=== PATIENT | female | born 1950 | race Caucasian/White ===

== ENCOUNTER 2023-07-19 22:54 | Inpatient (IN) | payer OTHER, SELFPAY ==
[2023-07-19 17:03] VITALS: BP 155/126
[2023-07-19 17:31] LABS: % Basophils 0.5 % (0-2); % Immature Granulocytes 0.4 % (0-0.5); % Monocytes 6.9 % (1.7-9.3); % Neutrophils 79.2 % (42.2-75.2); Absolute Basophils 0.1 10^3/uL (0-0.2); Absolute Eosinophils 0.1 10^3/uL (0-0.7); Absolute Lymphocytes 1.3 10^3/uL (1.2-3.4); Absolute Monocytes 0.8 10^3/uL (0.1-0.6); Absolute Neutrophils 8.8 10^3/uL (1.4-6.5); Hemoglobin 12.8 g/dL (12.0-16.0); Mean Corp Hgb Conc. 33.7 g/dL (33.0-37.0); Mean Corpuscular Hgb 30.7 pg (27.0-31.0); Mean Corpuscular Volume 91.1 fL (81.0-99.0); Mean Platelet Volume 9.9 fL (7.4-10.4); Nucleated Red Blood Cells % 0 %; Platelet Count 252 10^3/uL (130-400); Red Blood Cell Count 4.17 10^6/uL (4.20-5.40); Red Cell Dist. Width 13.2 % (11.5-14.5); White Blood Cell Count 11.1 10^3/uL (4.8-10.8)
[2023-07-19 17:40] LABS: INR 1.19; PT 14.9 Sec (11.4-14.6)
[2023-07-19 17:41] LABS: APTT 36.5 Sec (23.4-35.0)
[2023-07-19 17:46] LABS: ALT (SGPT) 25 U/L (0-35); AST (SGOT) 26 U/L (14-36); Albumin 4.6 g/dl (3.5-5.0); Alkaline Phosphatase 72 U/L (38-126); Blood Urea Nitrogen 20 mg/dl (7-17); Calcium 10.1 mg/dl (8.4-10.2); Carbon Dioxide 29 mmol/L (22-30); Chloride 97 mmol/L (98-107); Glucose 106 mg/dl (70-99); Potassium 3.9 mmol/L (3.5-5.1); Sodium 135 mmol/L (135-145); Total Bilirubin 0.6 mg/dl (0.2-1.3); Total Protein 7.3 g/dl (6.3-8.2); eGFR > 60.00
--- NOTE | 2023-07-19 20:09 | ED.GENMED ---
History of Present Illness
General
Chief Complaint: Skin Problem
Source: patient and ambulance crew
Exam Limitations: none
Time Seen by Provider: 07/19/23 19:56
Nursing documentation reviewed up to this point in time: agreed with
Travel History
Have you had any contact with someone who has COVID-19?: No
Do you have any symptoms of coronavirus? Fever > 100 degrees, chills, cough, shortness of breath, sore throat, loss of taste or smell, muscle aches, or headache?: No
History of Present Illness
History of Present Illness:
72-year-old female presents the emergency department via EMS from [facility] rehab due to a right foot wound and pain. She has had the wound since January. On 04/30/2023 Dr. Tello performed a detailed bypass to restore circulation to her
right leg. She has a history of a left AKA.
Past History
Past History
ED Past Medical History: COPD and Other (Peripheral vascular disease, ICU delirium)
ED Past Surgical History: Other (Femoropopliteal bypass with subsequent ligation and reversal)
Social History
Tobacco: Former smoker
Alcohol: None
Drug: None
Living: group home
Review of Systems
Review of Systems
Allergies reviewed?: Yes
All Other Systems: Not applicable
Constitutional: Reports no symptoms
EENT: Reports no symptoms
Respiratory: Reports no symptoms
Cardiac: Reports no symptoms
ABD/GI: Reports no symptoms
: Reports no symptoms
Musculoskeletal: Reports no symptoms
Skin: Reports other (Open wound right foot, erythema and pain to right foot)
Neurological: Reports no symptoms
Endocrine: Reports no symptoms
Hematologic/Lymphatic: Reports no symptoms
Psychiatric: Reports no symptoms
Phy Exam
Physical Exam
Physical Exam:
Physical Exam
General: no apparent distress, not acutely ill
Neck: supple. no meningeal signs. normal posterior pharynx
Heart: s1/s2 regular rate and rhythm, no murmur. equal radial
pulses.
HEENT: Pupils equal round reactive to light, EOMI
Lungs: no acute respiratory distress. clear bilaterally
Abdomen: normal bowel sounds. not tender. no CVAT
Neuro: alert and oriented. no focal neurological deficits cranial nerves II through XII intact
Skin: no rash
Psychiatric: well kept. interactive and cooperative
Extremities: Left AKA, scar right medial leg, palpable dorsalis pedis pulse, as well has dopplerable pulse
Course
Orders/Labs/Results
Orders:
Orders
07/19/23 17:17
CMP [Comprehensive Metabolic Panel] Urgent
Complete Blood Count/With Diff Urgent
PT/INR [Prothrombin Time] Urgent
PTT Urgent
07/19/23 20:18
Piperacillin/Tazo 3.375 Gram [Zosyn] 3.375 gram in 50 ml IV NOW
Vancomycin 1 Gram/200 ml [Vancocin] 1 gram in 200 ml IV NOW
US Periph Venous LOWER Ext RT Urgent
Comment:
Reason For Exam: right foot pain, swelling
07/19/23 20:41
Lactic Acid Q4H
Comment: CANCEL 2nd LACTIC ACID IF 1st LACTIC ACID IS LESS THAN 2
Blood Culture Q30M
SHIRA Source: Blood/Venous
Specimen Description:
07/19/23 20:44
Blood Culture Q30M
SHIAR Source: Blood/Venous
Specimen Description:
07/19/23 22:36
Admit/Transfer Patient As Directed
Co-Sign Provider:
Level of Care: Inpatient admission
Assign to:: Medical/Surgical
Physician / Group: gisela
Diagnosis: infected plantar wound
Reason for Hospitalization: infected plantar wound
Expected length of stay greater than two midnights?: Yes
ELOS- Estimated Length of Stay in days: 2
I certify the patient meets the requirements for IP care: Yes
07/19/23 22:37
Code Status As Directed
Resuscitation Status: Do not resuscitate
Reached after discussion with pt or family/Healthcare POA: Yes
DNR Bracelet Application ONCE
07/19/23 22:38
Foot, Right 2 View [CR Foot - Right 2 Views] Urgent
Comment:
Reason For Exam: plantar wound, osteo
07/19/23 22:39
Wound Culture [Wound/Abscess/Other Culture] Urgent
SHIRA Source: Foot
Specimen Description: Right
07/20/23 00:30
Lactic Acid Q4H
Comment: CANCEL 2nd LACTIC ACID IF 1st LACTIC ACID IS LESS THAN 2
Abnormal Lab Results
07/19/23
17:17
WBC 11.1 H 10^3/uL
(4.8-10.8)
RBC 4.17 L 10^6/uL
(4.20-5.40)
Absolute Neuts (auto) 8.8 H 10^3/uL
(1.4-6.5)
Absolute Monos (auto) 0.8 H 10^3/uL
(0.1-0.6)
Neutrophils % 79.2 H %
(42.2-75.2)
Lymphocytes % 12.0 L %
(20.5-51.1)
PT 14.9 H Sec
(11.4-14.6)
APTT 36.5 H Sec
(23.4-35.0)
Chloride 97 L mmol/L
(98-107)
BUN 20 H mg/dl
(7-17)
Glucose 106 H mg/dl
(70-99)
07/19/23 17:17
07/19/23 17:17
Vital Signs
Initial and Last Documented VS:
Initial Vital Signs
Temp Pulse Resp BP Pulse Ox
98.4 F 72 90 155/126 94
07/19/23 17:03 07/19/23 17:03 07/19/23 17:03 07/19/23 17:03 07/19/23 17:03
Last Documented Vital Signs
Temp Pulse Resp BP Pulse Ox
98.4 F 72 90 155/126 94
07/19/23 17:03 07/19/23 17:03 07/19/23 17:03 07/19/23 17:03 07/19/23 17:03
MDM/Problems Addressed
Differential Diagnosis Includes:
DVT, abscess, cellulitis
MDM/Problems Addressed:
72-year-old female with right foot wound infection, cellulitis and right popliteal synovial cyst. No signs of DVT. Good pulses in right foot. Admit to hospitalist.
Chronic conditions affecting care: HTN, COPD and PVD
Acute Exacerbation and/or Progression of Chronic Illness: HTN, COPD and PVD
*Radiology
Radiology exam reviewed: radiology read reviewed (Ultrasound right lower extremity no DVT, small popliteal cyst)
*Pulse Oximetry
Patient hypoxic: no
*EKG
Interpreted by ED Provider?: NA
*Commercial Front Load Driver Interpretation
Rate: Commercial Front Load Driver- N/A
*Critical Care Note
Total Time (30-74mins, 75-104mins- exclusive of procedures): Not Applicable
Data Reviewed
Review of Other/Old Records Reveals: Labs
Source: records (Prior creatinine from 05/03/2023 0.5)
Patient Management
Social determinants of health affecting care: Living situation
Discussion with other providers: Hospitalist
Escalation/DeEscalation of care consider admission/obs:
Admit indicated
ED Attending Note
-
Portions of this chart may have been created with voice recognition software.� Occasional wrong word or��sound alike� substitutions may have occurred due to the inherent limitations of voice recognition software.
Discharge Plan
Departure
Patient Disposition: Admit
Date of Disposition: 07/19/23
Time of Disposition: 22:42
Admit to: Med/Surg
Presentation/result/management discussed w/ accepting MD/DO: Hospitalist
Patient with high blood pressure during this ER visit?: Yes
Condition: Fair
Discharge Problem:
Cellulitis of foot, right, Synovial cyst of popliteal space [Aparicio], right knee
Prescriptions:
No Action
amlodipine 5 mg Tablet
5 mg PO DAILY
aspirin 81 mg Tablet,Delayed Release (Dr/Ec)
81 mg PO DAILY
prednisone 2.5 mg Tablet
2.5 mg PO DAILY
duloxetine 30 mg Capsule, Delayed Rel Sprinkle
30 mg PO BID
pantoprazole 40 mg Tablet,Delayed Release (Dr/Ec)
40 mg PO DAILY Qty: 0 0RF
thiamine HCl (vitamin B1) 100 mg Tablet
100 mg PO DAILY Qty: 0 0RF
acetaminophen 325 mg Tablet
650 mg PO Q4HPRN PRN (Reason: mild pain,temp>100.4 F)
magnesium hydroxide [Milk of Magnesia] 400 mg/5 mL Suspension
30 ml PO HSPRN PRN (Reason: if no bm x 3 days)
bisacodyl [Dulcolax (bisacodyl)] 10 mg Suppository
10 mg MA DAILY PRN (Reason: if mom ineffective)
Fleet Enema 19-7 gram/118 mL Enema
118 ml MA DAILY PRN (Reason: if bisacodyl suppository ineffective)
gabapentin 300 mg Capsule
300 mg PO TID
cfhfumsfksj-egbkygsqf-jkwhlbjy 100-62.5-25 mcg Blister With Device
1 inh INHALATION R DAILY
albuterol sulfate [Proventil HFA] 90 mcg/actuation Hfa Aerosol Inhaler
2 puff INHALATION R Q4HPRN PRN (Reason: SOB)
Calazime Skin Protectant Exter
1 applic topical TID
Rx Instructions:
Every Shift
Xarelto 2.5 mg Tablet
2.5 mg PO BID Qty: 90 0RF
tramadol 50 mg tablet
50 mg PO Q8HPRN PRN (Reason: moderate to severe pain)
cephalexin 500 mg capsule
500 mg PO Q12H
metaxalone 800 mg Tablet
800 mg PO Q8HPRN PRN (Reason: muscle spasm/neck pain)
Cough Drops 5 mg Lozenge
5 mg PO Q4HPRN PRN (Reason: cough/sore throat)
metoprolol tartrate 25 mg Tablet
25 mg PO DAILY
solifenacin 10 mg Tablet
10 mg PO DAILY
Referrals:
Carmen Fish MD [Family Provider] -
Interventions
Interventions:
*Risk Screen - Suicide Last Done: 07/19/23 20:14
*General Assessment Last Done: 07/19/23 20:14
*Neglect/Abuse Screening Last Done: 07/19/23 20:14
ED- Fall Risk Assessment Last Done: 07/19/23 20:14
*ED COVID-19 Vaccine History Last Done: 07/19/23 20:14
ED-Skin Assessment Last Done: 07/19/23 20:14
[2023-07-19] MEDS: ZOSYN 50 IV (20:56)
[2023-07-19 21:07] LABS: Lactic Acid 1.5 mmol/L (0.7-2.0)
[2023-07-19 21:26] VITALS: BP 107/64
[2023-07-19] MEDS: VANCOCIN 200 IV (21:26)
[2023-07-19 22:36] VITALS: BMI 20.9
--- NOTE | 2023-07-19 22:44 | HPS.HSE ---
Family Physician
-
Family Physician: Carmen Fish
Chief Complaint
-
wound
History of Present Illness
72-year-old female past medical history of chronic hypoxemic respiratory failure secondary to COPD on 3 L at night at baseline, choledocholithiasis, left AKA and chronic right foot plantar wound, prior DVT of right lower extremity in January 2023
treated with Eliquis, peripheral arterial disease status post femorofemoral bypass in January 2023, depression, TIA, hyperlipidemia, hypertension, GERD, adrenal adenoma, insomnia, presenting with right foot wound and pain.
Patient has had this wound since January but over the past few days she has developed redness on the side of the foot progressing up the right lower extremity associated with pain. The wound itself has been healing but there has been purulent
discharge as well over this time. She denies any fevers or chills.
In April Dr. Tello performed right femorofemoral bypass. She is scheduled to follow-up with them next month.
She drinks 1 glass of wine every night. Denies smoking.
Medical History
Past Medical History
Past Medical History: Reports Other (chronic hypoxemic respiratory failure secondary to COPD on 3 L at night at baseline, choledocholithiasis, left AKA and chronic right foot plantar wound, prior DVT of right lower extremity in January 2023
treated with Eliquis, peripheral arterial disease status post femorofemoral bypass in )
Past Surgical History: Reports None
Social History
Tobacco: Non-smoker
Alcohol: Daily
Drug: None
Family History
Family History: Not pertinent
Allergies / Home Medications
Allergies reflects when Allergies were last updated in [employer].
Home Medications with original date entered in [employer]
Allergy/Medication List:
Allergies
Allergy/AdvReac Type Severity Reaction Status Date / Time
cyclobenzaprine Allergy Unknown Verified 04/29/23 06:52
doxycycline Allergy Anaphylaxis Verified 04/29/23 06:52
hydromorphone [From Dilaudid] AdvReac Confusion Verified 04/29/23 06:52
lisinopril AdvReac Nausea Verified 04/29/23 06:52
rosuvastatin [From Crestor] AdvReac MUSCLE Verified 04/29/23 06:52
CRAMPS
Home Medications
amlodipine 5 mg tablet 5 mg PO DAILY Blood Pressure 01/08/23
aspirin 81 mg tablet,delayed release 81 mg PO DAILY Blood Clot Prevention/Tx 01/08/23
duloxetine 30 mg capsule,delayed release sprinkle 30 mg PO BID Depression 01/08/23
prednisone 2.5 mg tablet 2.5 mg PO DAILY Anti-Inflammatory 01/08/23
pantoprazole 40 mg tablet,delayed release 40 mg PO DAILY #0 tabs 01/22/23
thiamine HCl (vitamin B1) 100 mg tablet 100 mg PO DAILY #0 tabs 01/22/23
acetaminophen 325 mg tablet 650 mg PO Q4HPRN PRN mild pain,temp>100.4 F 01/29/23
bisacodyl 10 mg rectal suppository (Dulcolax (bisacodyl)) 10 mg SD DAILY PRN if mom ineffective 01/29/23
magnesium hydroxide 400 mg/5 mL oral suspension (Milk of Magnesia) 30 ml PO HSPRN PRN if no bm x 3 days 01/29/23
sodium phosphates 19 gram-7 gram/118 mL enema (Fleet Enema) 118 ml SD DAILY PRN if bisacodyl suppository ineffective 01/29/23
gabapentin 300 mg capsule 300 mg PO TID Neurological Condition 03/10/23
fluticasone fur. 100 mcg-umeclid 62.5 mcg-vilant 25 mcg inhalat.powder 1 inh inhalation R DAILY Lung/Breathing Issues 04/01/23
albuterol sulfate 90 mcg/actuation aerosol inhaler (Proventil HFA) 2 puff inhalation R Q4HPRN PRN SOB 04/07/23
Calazime Skin Protectant Exter 1 applic topical TID Skin Issues 04/22/23
rivaroxaban 2.5 mg tablet (Xarelto) 2.5 mg PO BID #90 tabs 05/03/23
cephalexin 500 mg capsule 500 mg PO Q12H 07/19/23
menthol 5 mg lozenges (Cough Drops) 5 mg PO Q4HPRN PRN cough/sore throat 07/19/23
metaxalone 800 mg tablet 800 mg PO Q8HPRN PRN muscle spasm/neck pain 07/19/23
metoprolol tartrate 25 mg tablet 25 mg PO DAILY 07/19/23
solifenacin 10 mg tablet 10 mg PO DAILY 07/19/23
tramadol 50 mg tablet 50 mg PO Q8HPRN PRN moderate to severe pain 07/19/23
Review of Systems
-
History Source: Patient
A 12 point ROS was completed and negative except as noted: Yes
Constitutional: Reports No Symptoms
EENT: Reports No Symptoms
Respiratory: Reports No Symptoms
Cardiac: Reports No Symptoms
Abdomen/GI: Reports No Symptoms
: Reports No Symptoms
Musculoskeletal: Reports No Symptoms
Skin: Reports No Symptoms
Neurological: Reports No Symptoms
Endocrine: Reports No Symptoms
Hematologic/Lymphatic: Reports No Symptoms
Psych: Reports No Symptoms
Physical Exam
Vital Signs
Vital Signs
Temp Pulse Resp BP Pulse Ox
98.4 F 72 90 155/126 94
07/19/23 17:03 07/19/23 17:03 07/19/23 17:03 07/19/23 17:03 07/19/23 17:03
Physical Exam
General: Well Developed, Well Nourished and No Apparent Distress
HEENT: NormoCephalic, Moist mucous membranes and Atraumatic
Respiratory: Clear
Cardiac: S1/S2 and Regular Rhythm; No Murmur or Rub
GI: Soft, Non Tender, Non Distended and Normal Bowel Sounds; No Organomegaly
Rectal: Deferred by Provider
Musculoskeletal: No Clubbing, No Cyanosis and No Edema
Skin: Other (plantar wound, purulent drainage, erythema of lateral/ dorsal foot extending up calf ); No Rash
Neuro: Nonfocal/grossly intact
Laboratory Results
-
07/19/23 17:17
07/19/23 17:17
Laboratory Results
PT 14.9 Sec (11.4-14.6) H 07/19/23 17:17
INR 1.19 07/19/23 17:17
APTT 36.5 Sec (23.4-35.0) H 07/19/23 17:17
Lactic Acid 1.5 mmol/L (0.7-2.0) 07/19/23 20:41
Total Bilirubin 0.6 mg/dl (0.2-1.3) 07/19/23 17:17
AST 26 U/L (14-36) 07/19/23 17:17
ALT 25 U/L (0-35) 07/19/23 17:17
Alkaline Phosphatase 72 U/L (38-126) 07/19/23 17:17
Data Reviewed
-
Lab Data: Labs Reviewed by me
Old Records: Reviewed
Impression/Plan
-
IMPRESSION:
PLAN:
# Infected right plantar wound
# Recent right femorofemoral bypass
-Vancomycin/Zosyn
-Venous ultrasound pending
-Check x-ray to evaluate for osteomyelitis, may require MRI
-Check wound culture
-Podiatry consulted
-Vascular surgery consulted
-Hold Xarelto for potential debridement
History of peripheral arterial disease status post femorofemoral bypass in January 2023
Left AKA
-Continue aspirin
Chronic hypoxemic respiratory failure secondary to COPD on 3 L at night at baseline
-Continue inhalers
History of choledocholithiasis/ascending cholangitis
Prior DVT of right lower extremity in January 2023
-Hold Xarelto for now
Depression
-Continue duloxetine
TIA
Hyperlipidemia
Essential hypertension
-Continue amlodipine
GERD
Adrenal adenoma
Insomnia
Chronic anemia
Chronic pain
-Continue tramadol, gabapentin
Prednisone
-Only takes as needed for sore throat or cold
DNR/DNI
DVT prophylaxis�heparin
Regular diet
[2023-07-20 00:27] VITALS: BP 153/73
[2023-07-20] MEDS: ZOSYN 50 IV ×4 (02:27→20:56)
[2023-07-20 06:32] LABS: % Basophils 0.7 % (0-2); % Immature Granulocytes 0.2 % (0-0.5); % Lymphocytes 14.9 % (20.5-51.1); % Monocytes 8.2 % (1.7-9.3); Absolute Basophils 0.1 10^3/uL (0-0.2); Absolute Eosinophils 0.2 10^3/uL (0-0.7); Absolute Lymphocytes 1.4 10^3/uL (1.2-3.4); Absolute Monocytes 0.8 10^3/uL (0.1-0.6); Absolute Neutrophils 6.7 10^3/uL (1.4-6.5); Hematocrit 36.8 % (37.0-47.0); Hemoglobin 12.2 g/dL (12.0-16.0); Mean Corp Hgb Conc. 33.2 g/dL (33.0-37.0); Mean Corpuscular Hgb 30.6 pg (27.0-31.0); Mean Corpuscular Volume 92.2 fL (81.0-99.0); Mean Platelet Volume 10.6 fL (7.4-10.4); Nucleated Red Blood Cells % 0 %; Platelet Count 243 10^3/uL (130-400); Red Blood Cell Count 3.99 10^6/uL (4.20-5.40); Red Cell Dist. Width 13.2 % (11.5-14.5); White Blood Cell Count 9.1 10^3/uL (4.8-10.8)
[2023-07-20 06:52] LABS: ALT (SGPT) 27 U/L (0-35); AST (SGOT) 35 U/L (14-36); Albumin 4.2 g/dl (3.5-5.0); Alkaline Phosphatase 75 U/L (38-126); Blood Urea Nitrogen 15 mg/dl (7-17); Calcium 9.8 mg/dl (8.4-10.2); Carbon Dioxide 25 mmol/L (22-30); Chloride 103 mmol/L (98-107); Estimated Creatinine Clearance 71 ml/min; Glucose 76 mg/dl (70-99); Potassium 3.5 mmol/L (3.5-5.1); Sodium 135 mmol/L (135-145); Total Bilirubin 0.9 mg/dl (0.2-1.3); Total Protein 6.7 g/dl (6.3-8.2); eGFR > 60.00
[2023-07-20 09:00] VITALS: BP 131/70
[2023-07-20] MEDS: VITAMIN B1 100 MG PO (09:04)
[2023-07-20] MEDS: ASPIR LOW (ENTERIC COATED) 81 MG PO (09:04)
[2023-07-20] MEDS: NEURONTIN 300 MG PO ×3 (09:04→22:06)
[2023-07-20] MEDS: PROTONIX 40 MG PO (09:05)
[2023-07-20] MEDS: HEPARIN 5000 UNITS SC ×2 (09:05→20:56)
[2023-07-20] MEDS: LOPRESSOR 25 MG PO (09:05)
[2023-07-20] MEDS: CYMBALTA DELAYED RELEASE 30 MG PO ×2 (09:05→20:57)
[2023-07-20] MEDS: VESICARE 10 MG PO (09:05)
[2023-07-20] MEDS: NORVASC 5 MG PO (09:05)
--- NOTE | 2023-07-20 09:23 | PHA.VAN.IN ---
Assessment
- Assessment
Renal Function: Appears similar to baseline
Concomitant Antimicrobials: piperacillin/tazobactam
AUC Dosing Plan
- Dosing Variables
Dosing Weight (kg): 55
Dosing CrCl (ml/min): 71
Vd coefficient (L/kg): 0.7
- Empiric Dosing
Initial / Loading Dose: 1000mg - 3/4 21:26
Maintenance Regimen: Vanc 500mg Q12H - first dose now then 1800
Estimated AUC (mcg*h/mL): 423
Estimated Peak (mcg*h/mL): 24.4
Estimated Trough (mcg/ml): 12.2
Estimated Half Life (H): 10.9
- Monitoring
No levels ordered at this time: consider levels in next few days
Pharmacokinetics Vancomycin I
- -
Patient Age: 72
Patient Sex: Female
Vancomycin Day #: 1
Indication: Skin And Soft Tissue
Requesting Provider: Dr. Quiroz
Pertinent Antimicrobial Allergies:
doxycycline - anaphylaxis
Height / Weight:
Height 5 ft 4 in
Actual Weight 55.229 kg
Pertinent Past Medical History: COPD (O2), L. AKA, PAD
- Vital Signs / Lab Results
Temp Pulse Resp BP Pulse Ox
98.1 F 64 17 131/70 96
07/20/23 09:00 07/20/23 09:05 07/20/23 09:00 07/20/23 09:05 07/20/23 09:00
Lab Results - Hematology
07/19/23 07/20/23
17:17 05:35
WBC 11.1 H 9.1
Lab Results - Chemistry
07/19/23 07/20/23
17:17 05:35
BUN 20 H 15
Creatinine 0.7 0.6
Estimated Creat Clear 71
Albumin 4.6 4.2
07/19/23 07/20/23
20:41 00:30
Lactic Acid 1.5 Cancelled
[2023-07-20] MEDS: SYMBICORT 80/4.5 MCG INHALER 2 PUFF INH ×2 (10:05→20:24)
--- NOTE | 2023-07-20 11:22 | CON.MD ---
Consultation - Medical
-
Consult requested by Dr on 07/20/2023 @
Consult performed by Dr Yvonne Wei 07/20/2023 @1025
Medical History
Chief Complaint
Wound right foot
History of Present Illness
This is a 72-year-old female with past medical history of left AKA and chronic right foot plantar wound, prior DVT of right lower extremity in January 2023 treated with Eliquis, peripheral arterial disease status post femorofemoral bypass in
01/2023.Patient has had this right foot wound since bypass/AKA but over the past few days she noticed increased redness and pain to the foot progressing up the right lower extremity with associated with pain. She denies any fevers or chills.
Dr. Tello performed right femorofemoral bypass 05/08.� I was consulted to evaluate wound for possible debridement.
Past Medical / Surgical History
PMH/PSH +chronic hypoxemic respiratory failure secondary to COPD, choledocholithiasis, left AKA and chronic right foot plantar wound, prior DVT of right lower extremity in January 2023 treated with Eliquis, peripheral arterial disease status post
femorofemoral bypass in January 2023
Medications
Cyclobenzaprine, Doxycycline, Dilaudid, crestor, Amlodipine, asa, albuterol inhaler, gabapentin, metaxalone, metoprolol, pantoprazole, prednisone, xarelto, solifenacin, tramadol,
Social / Family History
She drinks 1 glass of wine every night.� Denies smoking.
Vital Signs / Labs
-
Vital Signs and Labs:
Temp Pulse Resp BP Pulse Ox
98.1 F 64 17 131/70 96
07/20/23 09:00 07/20/23 09:05 07/20/23 09:00 07/20/23 09:05 07/20/23 09:00
07/20/23 05:35
07/20/23 05:35
07/19/23 07/20/23
17:17 05:35
WBC 11.1 H
RBC 4.17 L 3.99 L
Hct 36.8 L
MPV 10.6 H
Absolute Neuts (auto) 8.8 H 6.7 H
Absolute Monos (auto) 0.8 H 0.8 H
Neutrophils % 79.2 H
Lymphocytes % 12.0 L 14.9 L
PT 14.9 H
APTT 36.5 H
Chloride 97 L
BUN 20 H
Glucose 106 H
Physical Exam
Vital Signs
Vital Signs
Temp Pulse Resp BP Pulse Ox
98.1 F 64 17 131/70 96
07/20/23 09:00 07/20/23 09:05 07/20/23 09:00 07/20/23 09:05 07/20/23 09:00
Physical Exam
General: NAD, pleasant
Lower Extremities:
AKA LLE, right foot with palpable 1/4 DP, non palp FREIGHT SOLICITOR . Foot warm to touch, cft <4 secs
Midfoot ulceration to exposed tendon/fascia measures approx 2.7cm long x 1cm wide x 0.5cm deep. + purulence expressed
+ cellulitiis mid arch to rearfoot-boggy and tender to touch
Assessemnt/Plan
-
1-Chronic non healing wound right foot to exposed tendon/fascia
2-Cellulitis/possible abscess left midfoot
3-PAD S/P revasc RLE and AKA LLE
4-Ambulatory dysfunction S/P AKA
---Wound care orders placed on chart, will obtain MRI for possible abscess.
---May require I&D in OR
---Vascular to see and assess
Will follow with you
--- NOTE | 2023-07-20 11:23 | CON.VAS ---
Addendum entered and electronically signed by Srinivasan Pinto III, MD 07/20/23 17:27:
This patient was seen and examined with TOMÁS Galvez. I agree with the history and physical exam as well as the assessment and plan. I have the following additions:
Well-known to the vascular surgery service
Left AKA
Fem-Fem bypass
Right fem-pop bypass
Chronic large plantar surface wound right foot
Active infection
Draining pus
Duplex reviewed. Fem fem patent. RLE bypass patent. Distal PT outflow is occluded.
I suspect she has chronic osteo of her foot based on the appearance of the wound and non healing nature.
Podiatry to see
MRI of the foot
Risk of limb loss is high
Signed:
Srinivasan Pinto III, MD
[facility] Vascular Surgery
[phone] (queo)
Original Note:
Consultation
Consultation Request
Performing Provider: Millie
Reason for Consultation: Nonhealing foot wound
Medical History
-
Chief Complaint: R foot wound
History of Present Illness:
72-year-old female well-known to the vascular service, last seen in our office 06/15/2023. At that time right foot wound was cleaned and noted to be slowly healing. Patient states she has wound care daily and a physician at her facility checks on
the progress of the wound weekly. She notes the wound has never been painful. Yesterday she felt an aching at the site of the wound and some redness at her ankle. For these findings she came to the ER.
Vascular history noted below.
Vascular consult for nonhealing wound. Patient seen at bedside in the ER with Dr. Pinto. Right plantar foot wound image below. Large amount of purulence expressed. Distal pulses nonpalpable. Palpable femoral and popliteal pulse.
12/09/22- L fem-pop bypass and FEA- [facility]�������
01/19/23- LEFT lower extremity amputation, above the knee- CLI/failed bypass from outside hospital- Dr. Pinto�������
01/30/23- Redo left groin dissection; Left to right femoral to femoral artery bypass with 8 mm ringed Propaten graft- RLE ischemic rest pain�������
03/17/23- diagnostic RLE agram�������
04/29/23- Right profunda femoris to below-knee popliteal artery bypass with 6 mm ringed [facility] Propaten graft- [facility]
Past Medical History
Past Medical History: COPD and Other (choledocholithiasis, DVT of right lower extremity in January 2023 treated with Eliquis, PAD )
Past Surgical History: Other (Left AKA, femorofemoral bypass, right profunda to below-knee popliteal bypass)
Social History
Tobacco: Non-Smoker
Alcohol: Daily
Drug: None
Living: Long Term
Family History
Family History: Reviewed & Not Pertinent
Allergies / Home Medications
Allergy/AdvReac Type Severity Reaction Status Date / Time
cyclobenzaprine Allergy Unknown Verified 04/29/23 06:52
doxycycline Allergy Anaphylaxis Verified 04/29/23 06:52
hydromorphone [From Dilaudid] AdvReac Confusion Verified 04/29/23 06:52
lisinopril AdvReac Nausea Verified 04/29/23 06:52
rosuvastatin [From Crestor] AdvReac MUSCLE Verified 04/29/23 06:52
CRAMPS
Medication Instructions Recorded Confirmed Type
amlodipine 5 mg tablet 5 mg PO DAILY Blood Pressure 01/08/23 07/19/23 History
aspirin 81 mg tablet,delayed 81 mg PO DAILY Blood Clot 01/08/23 07/19/23 History
release Prevention/Tx
duloxetine 30 mg capsule,delayed 30 mg PO BID Depression 01/08/23 07/19/23 History
release sprinkle
prednisone 2.5 mg tablet 2.5 mg PO DAILY Anti-Inflammatory 01/08/23 07/19/23 History
pantoprazole 40 mg tablet,delayed 40 mg PO DAILY #0 tabs 01/22/23 07/19/23 Rx
release
thiamine HCl (vitamin B1) 100 mg 100 mg PO DAILY #0 tabs 01/22/23 07/19/23 Rx
tablet
acetaminophen 325 mg tablet 650 mg PO Q4HPRN PRN mild 01/29/23 07/19/23 History
pain,temp>100.4 F
bisacodyl 10 mg rectal suppository 10 mg AZ DAILY PRN if mom 01/29/23 07/19/23 History
(Dulcolax (bisacodyl)) ineffective
magnesium hydroxide 400 mg/5 mL 30 ml PO HSPRN PRN if no bm x 3 01/29/23 07/19/23 History
oral suspension (Milk of Magnesia) days
sodium phosphates 19 gram-7 118 ml AZ DAILY PRN if bisacodyl 01/29/23 07/19/23 History
gram/118 mL enema (Fleet Enema) suppository ineffective
gabapentin 300 mg capsule 300 mg PO TID Neurological 03/10/23 07/19/23 History
Condition
fluticasone fur. 100 mcg-umeclid 1 inh inhalation R DAILY 04/01/23 07/19/23 History
62.5 mcg-vilant 25 mcg Lung/Breathing Issues
inhalat.powder
albuterol sulfate 90 mcg/actuation 2 puff inhalation R Q4HPRN PRN SOB 04/07/23 07/19/23 History
aerosol inhaler (Proventil HFA)
Calazime Skin Protectant Exter 1 applic topical TID Skin Issues 04/22/23 07/19/23 History
cephalexin 500 mg capsule 500 mg PO Q12H Infection 07/19/23 07/19/23 History
menthol 5 mg lozenges (Cough Drops) 5 mg PO Q4HPRN PRN cough/sore 07/19/23 07/19/23 History
throat
metaxalone 800 mg tablet 800 mg PO Q8HPRN PRN muscle 07/19/23 07/19/23 History
spasm/neck pain
metoprolol tartrate 25 mg tablet 25 mg PO DAILY Blood Pressure 07/19/23 07/19/23 History
solifenacin 10 mg tablet 10 mg PO DAILY Urinary Issue 07/19/23 07/19/23 History
tramadol 50 mg tablet 50 mg PO Q8HPRN PRN moderate to 07/19/23 07/19/23 History
severe pain
rivaroxaban 2.5 mg tablet (Xarelto) 2.5 mg PO BID Blood Clot 07/20/23 07/19/23 History
Prevention/Tx
Review of Systems
-
History Source: Patient
All other systems: Negative unless noted
Constitutional: Reports No Symptoms
EENT: Reports No Symptoms
Respiratory: Reports No Symptoms
Cardiac: Reports No Symptoms
Vascular: Denies Leg Pain / Claudication
Abdomen/GI: Reports No Symptoms
: Reports No Symptoms
Musculoskeletal: Reports Edema
Skin: Reports Other (chronic right foot wound)
Neurological: Reports No Symptoms
Endocrine: Reports No Symptoms
Physical Exam
Vital Signs
Temp Pulse Resp BP Pulse Ox
98.1 F 64 17 131/70 96
07/20/23 09:00 07/20/23 09:05 07/20/23 09:00 07/20/23 09:05 07/20/23 09:00
Lab Results
07/20/23 05:35
07/20/23 05:35
Physical Exam
General: No Apparent Distress
HEENT: Normocephalic and Atraumatic
Respiratory: Non Labored Respirations
Cardiac: Negative JVD
Breast: Deferred by me
GI: Soft and Non Tender
Musculoskeletal: No Clubbing, No Cyanosis and Edema (mild, to right foot)
Skin: Warm and Other (see image above)
Neuro: Awake, Alert and Oriented
Psych: Calm
Pulses: Right Femoral: +2, Right Popliteal: +2, Right Dorsalis Pedis: Doppler (nonpalp) and Right Posterior Tibial: Doppler (nonpalp)
Assessment / Plan
-
72-year-old female with chronic right foot wound since January 2023. Patient states it has been slowly healing with the help of wound care but yesterday she noted it was uncomfortable and aching which was new. This led to her ER visit
Plan:
-Arterial ultrasound
-Admit to hospitalist
-Antibiotics
-Podiatry consult
-MRI of the foot
--- NOTE | 2023-07-20 13:54 | CM ---
CM reviewed medical records. REBECCA spoke with Kelly at [facility]. Patient is a LTC resident. Bed hold in place. Plan to return on discharge.
REPORT
[phone] ask for 'A' wing
[2023-07-20] MEDS: DAKIN'S SOLUTION 0.25% 1/2 STRENGTH 473 ML TOPICAL (15:06)
--- NOTE | 2023-07-20 15:35 | W.PN.HOSP.TC ---
Today's Communication/Plan
-
Follow MRI foot
CW abx
Follow surgery recs
Assessment / Plan
Assessment / Plan
# Infected right plantar wound
# Recent right femorofemoral bypass
-cw Vancomycin/Zosyn
-Venous ultrasound pending
-Foot x-ray without evidence of osteomyelitis. MRI foot recommended ;arterial doppler pending
-Follow wound culture
-Podiatry consulted
-Vascular surgery consulted
-Hold Xarelto for potential debridement
History of peripheral arterial disease status post femorofemoral bypass in January 2023
Left AKA
-Continue aspirin
Chronic hypoxemic respiratory failure secondary to COPD on 3 L at night at baseline
-Continue inhalers
History of choledocholithiasis/ascending cholangitis
Prior DVT of right lower extremity in January 2023
-Hold Xarelto for now
Depression
-Continue duloxetine
TIA
Hyperlipidemia
Essential hypertension
-Continue amlodipine
GERD
Adrenal adenoma
Insomnia
Chronic anemia
Chronic pain
-Continue tramadol, gabapentin
Prednisone
-Only takes as needed for sore throat or cold
DNR/DNI
DVT prophylaxis�heparin
Regular diet
Anticipated Discharge: > 48 hours
Subjective/Interval History
-
Date of Service: July 20, 2023
Moderate pain from right toe plantar foot wound. No fever or chills.
Objective Data
-
Labs:
Laboratory Results
07/20/23
05:35
WBC 9.1
Hgb 12.2
Hct 36.8 L
Plt Count 243
Sodium 135
Potassium 3.5
Chloride 103
Carbon Dioxide 25
BUN 15
Creatinine 0.6
Glucose 76
Calcium 9.8
Total Bilirubin 0.9
AST 35
ALT 27
Alkaline Phosphatase 75
Vital Signs:
Vital Signs
Temp Pulse Resp BP Pulse Ox
98.1 F 64 17 131/70 96
07/20/23 09:00 07/20/23 09:05 07/20/23 09:00 07/20/23 09:05 07/20/23 09:00
Review of Systems
-
Respiratory: Denies Trouble Breathing
Cardiac: Denies Chest Pain
Abdomen/GI: Denies Abdominal Pain, Nausea or Vomiting
Neuro: Denies Dizzy
Physical Exam
-
General: No Apparent Distress
HEENT: Moist Mucous Membranes
Respiratory: Clear to Auscultation
Cardiac: Regular Rhythm and S1/S2
GI: Soft
Skin: Other (deep rt plantar wound - no bleeding)
Neuro: AO x 3
Psych: Calm
Data Reviewed
-
Labs: Labs Reviewed by me
[2023-07-20 17:00] VITALS: BP 129/74
[2023-07-20] MEDS: VANCOCIN HCL 500 MG 100 IV (18:33)
--- NOTE | 2023-07-20 20:18 | EDRN ---
tinges of pain. R foot on a pillow to elevate.
[2023-07-20] MEDS: ULTRAM 50 MG PO (21:08)
[2023-07-20 22:00] VITALS: BMI 20.9
[2023-07-20 22:39] VITALS: BP 109/70
[2023-07-21] MEDS: ZOSYN 50 IV ×4 (02:25→20:42)
[2023-07-21] MEDS: VANCOCIN HCL 500 MG 100 IV ×2 (06:18→18:19)
[2023-07-21 07:04] LABS: Hemoglobin 13.6 g/dL (12.0-16.0); Mean Corpuscular Hgb 31.1 pg (27.0-31.0); Mean Corpuscular Volume 91.5 fL (81.0-99.0); Mean Platelet Volume 10.3 fL (7.4-10.4); Platelet Count 248 10^3/uL (130-400); Red Blood Cell Count 4.37 10^6/uL (4.20-5.40); Red Cell Dist. Width 13.1 % (11.5-14.5); White Blood Cell Count 6.5 10^3/uL (4.8-10.8)
[2023-07-21 08:00] VITALS: BP 130/82
[2023-07-21] MEDS: SYMBICORT 80/4.5 MCG INHALER 2 PUFF INH ×2 (08:34→20:46)
[2023-07-21] MEDS: NORVASC 5 MG PO (09:24)
[2023-07-21] MEDS: NEURONTIN 300 MG PO ×3 (09:25→22:20)
[2023-07-21] MEDS: VITAMIN B1 100 MG PO (09:25)
[2023-07-21] MEDS: PROTONIX 40 MG PO (09:26)
[2023-07-21] MEDS: LOPRESSOR 25 MG PO (09:26)
[2023-07-21] MEDS: CYMBALTA DELAYED RELEASE 30 MG PO ×2 (09:26→20:41)
[2023-07-21] MEDS: VESICARE 10 MG PO (09:26)
[2023-07-21] MEDS: HEPARIN 5000 UNITS SC ×2 (09:26→20:48)
[2023-07-21] MEDS: ASPIR LOW (ENTERIC COATED) 81 MG PO (09:26)
[2023-07-21] MEDS: DAKIN'S SOLUTION 0.25% 1/2 STRENGTH 473 ML TOPICAL (09:27)
--- NOTE | 2023-07-21 10:18 | PTCARENOTE ---
pt aaox3. states min pain in foot. does not want pain med. room air. denies sob. right foot wound changed by . some puss noted. pt tearful about current condition and that she may loose her foot
--- NOTE | 2023-07-21 11:10 | W.PN.UPDATE ---
Update Note
Progress Note Update
Seen and evaluated. Right foot wound has actually shrunken down. There is actually an excellent granulation base. However more proximally in the foot just adjacent to the wound there is a fluctuant swelling. When I squeeze that pus emanates. I
therefore squeezed to express as much purulence as I could. I then packed with a dressing pushed into their (wet-to-dry) with a Q-tip. Recommend continued local wound care with packing into that area. Likely would benefit from opening up of the
wound a little bit more to allow better packing. Good granulation base and the exposed portion of the wound. Therefore hopefully can heal eventually, but discussed that I cannot guarantee that. If not would be at risk for amputation. I agree
with in the meanwhile MRI imaging to assess for any further abscesses. I reached out to podiatry to discuss, awaiting callback.
--- NOTE | 2023-07-21 11:29 | CM ---
COnfirmed physician for patient at SNF is Marcia Leos.
She has used all of her skilled days so only has medical assistance at this time.
Plan; return to [facility].
--- NOTE | 2023-07-21 13:05 | W.PN.HOSP.TC ---
Today's Communication/Plan
-
CW ABX
Consult ID
Follow MRI foot
Assessment / Plan
Assessment / Plan
# Infected right plantar wound
# Recent right femorofemoral bypass
-cw Vancomycin/Zosyn
-Venous ultrasound no DVT
-Foot x-ray without evidence of osteomyelitis. MRI foot pending.
-Follow wound culture
-Podiatry following
-Vascular surgery following
-Hold Xarelto for potential debridement
- Consult ID for abx choices
History of peripheral arterial disease status post femorofemoral bypass in January 2023
Left AKA
-Continue aspirin
Chronic hypoxemic respiratory failure secondary to COPD on 3 L at night at baseline
-Continue inhalers
History of choledocholithiasis/ascending cholangitis
Prior DVT of right lower extremity in January 2023
-Hold Xarelto for now
Depression
-Continue duloxetine
TIA
Hyperlipidemia
Essential hypertension
-Continue amlodipine
GERD
Adrenal adenoma
Insomnia
Chronic anemia
Chronic pain
-Continue tramadol, gabapentin
Prednisone
-Only takes as needed for sore throat or cold
DNR/DNI
DVT prophylaxis�heparin
Regular diet
Anticipated Discharge: 24 - 48 hours
Subjective/Interval History
-
Date of Service: July 21, 2023
No pain in foot today
She had pus expressed from rt foot by Vascular at bedside
Objective Data
-
Labs:
Laboratory Results
07/21/23
06:15
WBC 6.5
Hgb 13.6
Hct 40.0
Plt Count 248
Vital Signs:
Vital Signs
Temp Pulse Resp BP Pulse Ox
97.7 F 67 18 130/82 95
07/21/23 08:00 07/21/23 08:00 07/21/23 08:00 07/21/23 09:24 07/21/23 08:00
I&O
07/20/23 07/21/23 07/22/23
06:59 06:59 06:59
Output Total 750 / 750
Balance -750 / -750
Review of Systems
-
Constitutional: Denies Fever or Chills
Respiratory: Denies Trouble Breathing
Cardiac: Denies Chest Pain
Neuro: Denies Dizzy
Physical Exam
-
General: No Apparent Distress
HEENT: Moist Mucous Membranes
Respiratory: Clear to Auscultation
Cardiac: Regular Rhythm and S1/S2
GI: Soft
Skin: Other (rt foot in dressing)
Neuro: AO x 3
Psych: Calm
Data Reviewed
-
Labs: Labs Reviewed by me
--- NOTE | 2023-07-21 15:12 | PHA.VAN.FU ---
Vancomycin Assessment / Plan
- Assessment
Renal Function: No New Labs Today
In the past 24 hrs, patient has been: Afebrile
Concomitant Antimicrobials: piperacillin/tazobactam
- Dosing Plan
Continue: Vanc 500mg Q12H
- Monitoring Plan
No level(s) ordered at this time: will hold off on level for now as may not fully be at steady state
- Follow Up
Pharmacy will continue to follow.
Vancomycin Follow UP
- -
Patient Age: 72
Patient Sex: Female
Vancomycin Day #: 2
Indication: Skin And Soft Tissue
Requesting Provider: Dr. Quiroz
Pertinent Antimicrobial Allergies:
doxycycline - anaphylaxis
Height / Weight:
Height 5 ft 4 in
Actual Weight 55.2 kg
Pertinent Past Medical History: COPD (O2), L. AKA, PAD
- Vital Signs / Lab Results
Temp Pulse Resp BP Pulse Ox
97.7 F 67 18 130/82 95
07/21/23 08:00 07/21/23 08:00 07/21/23 08:00 07/21/23 09:24 07/21/23 08:00
Lab Results - Hematology
07/19/23 07/20/23 07/21/23
17:17 05:35 06:15
WBC 11.1 H 9.1 6.5
Lab Results - Chemistry
07/19/23 07/20/23
17:17 05:35
BUN 20 H 15
Creatinine 0.7 0.6
Estimated Creat Clear 71
Albumin 4.6 4.2
07/19/23 07/20/23
20:41 00:30
Lactic Acid 1.5 Cancelled
Microbiology Results
07/20/23 01:06 Wound Culture - Preliminary
Foot - Right Proteus mirabilis
Diptheroids
Gram Stain - Preliminary
07/19/23 20:44 Blood Culture - Preliminary
Blood/Venous No Growth in 24 hours- Final report to follow
07/19/23 20:41 Blood Culture - Preliminary
Blood/Venous No Growth in 24 hours- Final report to follow
--- NOTE | 2023-07-21 15:29 | CON.ID ---
Consultation
-
Date/Time Consultation Requested: 07/21/23 11:37
Date/Time Consultation Performed: 07/21/23 15:33
Requesting Provider: Dr Verdin
Performing Provider: Dr Pina
Reason for Consultation: rt foot infection
Chief Complaint / Past History
Chief Complaint
right foot wound - progression of pain/swelling
History of Present Illness
Ms Cox is a 72 year old female with history of PAD s/p right femorofemoral bypass 05/08, L AKA, chronic right plantar foot wound (without charcot foot) who presents here for rapidly increasing pain, swelling and erythema of the wound - to the
point that she was unable to stand. No fevers or chills. The wound has been draining puss.
Since arrival here she has been afebrile, bp stable, wbc 11.1 on arrival now 6.5, hgb 13.6, plt 248, L shift was present or arrival now improved, cr 0.6, lactic acid 1.5, t bili 0.9, ast 35, alt 27, alk phos 75, MRI of the foot done read pending,
Xray: no evidence of osteo, 3/ extremity arterial study: patent fem-fem bypass, monophasic, wound culture proteus and diptheroids thus far, blood cultures x2 in progress, currently on vancomycin and zosyn. ID is consulted for assistance with
management.
Past History
Additional Past Medical History:
+chronic hypoxemic respiratory failure secondary to COPD, choledocholithiasis, chronic right foot plantar wound, prior DVT of right lower extremity in January 2023 treated with Eliquis, peripheral arterial disease
Additional Past Surgical History:
L AKA
femorofemoral bypass in January 2023
Allergy History:
cyclobenzaprine Allergy (Verified 04/29/23 06:52)
Unknown
doxycycline Allergy (Verified 04/29/23 06:52)
Anaphylaxis
hydromorphone [From Dilaudid] Adverse Reaction (Verified 04/29/23 06:52)
Confusion
lisinopril Adverse Reaction (Verified 04/29/23 06:52)
Nausea
rosuvastatin [From Crestor] Adverse Reaction (Verified 04/29/23 06:52)
MUSCLE CRAMPS
Medications Reviewed: Yes
Social History
Tobacco: Non-Smoker
Alcohol: Daily
Drug: None
Family History
Family History: Not Pertinent
Review of Systems
Review of Systems
General: Negative Fever or Chills
All systems: All other systems were reviewed and were negative
Vital Signs
Temp Pulse Resp BP Pulse Ox
97.7 F 67 18 130/82 95
07/21/23 08:00 07/21/23 08:00 07/21/23 08:00 07/21/23 09:24 07/21/23 08:00
Physical Exam
Physical Exam
Constitutional: No Acute Distress and Chronically Ill
Cardiovascular: Regular Rate and S1/S2; Negative Murmur or Rub
Pulmonary: Clear and Symmetric; Negative Wheezes, Rales or Rhonchi
Gastrointestinal: Soft, Non Tender, Non Distended and Normal Bowel Sounds
Skin: Warm and Dry; Negative Rash or Jaundice
Wound: Other (right foot plantar wound with adjacent large fluctuant collection; packing not removed at patient request)
Lab / Diagnostic Study Results
07/21/23 06:15
07/20/23 05:35
Abs Immat Gran (auto) 0.0 10^3/uL (0-0.05) 07/20/23 05:35
Absolute Neuts (auto) 6.7 10^3/uL (1.4-6.5) H 07/20/23 05:35
Absolute Lymphs (auto) 1.4 10^3/uL (1.2-3.4) 07/20/23 05:35
Absolute Monos (auto) 0.8 10^3/uL (0.1-0.6) H 07/20/23 05:35
Absolute Basos (auto) 0.1 10^3/uL (0-0.2) 07/20/23 05:35
Immature Gran % 0.2 % (0-0.5) 07/20/23 05:35
Neutrophils % 74.0 % (42.2-75.2) 07/20/23 05:35
Lymphocytes % 14.9 % (20.5-51.1) L 07/20/23 05:35
Monocytes % 8.2 % (1.7-9.3) 07/20/23 05:35
Eosinophils % 2.0 % (0-6) 07/20/23 05:35
Basophils % 0.7 % (0-2) 07/20/23 05:35
PT 14.9 Sec (11.4-14.6) H 07/19/23 17:17
INR 1.19 07/19/23 17:17
Lactic Acid Cancelled 07/20/23 00:30
Microbiology Results
Micro:
07/20/23 01:06 Wound Culture - Preliminary
Foot - Right Proteus mirabilis
Diptheroids
Gram Stain - Preliminary
07/19/23 20:44 Blood Culture - Preliminary
Blood/Venous No Growth in 24 hours- Final report to follow
07/19/23 20:41 Blood Culture - Preliminary
Blood/Venous No Growth in 24 hours- Final report to follow
07/20/23 17:05 MRSA Screen - Pending
Nose
Assessment / Plan
R Plantar Foot Wound Infection
PAD
Reported anaphylaxis to doxycycline
- blood cultures x2 in progress
- wound culture: proteus and diptheroids
- MRI read pending
- agree with vancomycin and zosyn at this time
- follow clinically
--- NOTE | 2023-07-21 15:53 | PTCARENOTE ---
pt transferred to [address] [place] [address] will all belongings.
--- NOTE | 2023-07-21 16:10 | W.PN.UPDATE ---
Update Note
Progress Note Update
Chart reviewed, pt being transferred from ED to room.
Spoke w/ Dr Tello. Perfusion appears to be sufficient at this time and does not require any intervention.
A/P
S/P AKA LLE
Wound right foot-w/purulence and possible abscess, no ST air or erosive changes to bone are noted.
wound culture: proteus and diptheroids-ID following
MRI pending- will determine if I&D is necessary
Continue present wound care/ packing per Dr Tello and consider wound vac
Will follow
[2023-07-21 16:47] VITALS: BP 115/66
[2023-07-21] MEDS: TYLENOL 650 MG PO (20:41)
[2023-07-21] MEDS: ULTRAM 50 MG PO (20:41)
[2023-07-21] MEDS: NSS 500 IV (23:32)
[2023-07-21 23:40] VITALS: BP 83/55
--- NOTE | 2023-07-21 23:54 | PTCARENOTE ---
Addendum entered by Jasmin Cam RN 07/22/23 06:33:
Post-bolus blood pressure 104/66, HR 62.
Original Note:
Pt with a BP of 83/55, asymptomatic, no complaints of dizziness/lightheadedness, SOB or weakness. 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
[2023-07-22] MEDS: ZOSYN 50 IV ×4 (02:24→19:35)
[2023-07-22 04:30] VITALS: BP 104/66
[2023-07-22] MEDS: VANCOCIN HCL 500 MG 100 IV ×2 (06:39→17:54)
[2023-07-22 06:45] LABS: C-Reactive Protein < 5.00 mg/L (0.0-10.00)
[2023-07-22 06:51] LABS: Erythrocyte Sed Rate 2 mm/hour (0-20)
[2023-07-22] MEDS: SYMBICORT 80/4.5 MCG INHALER 2 PUFF INH ×2 (07:24→20:33)
[2023-07-22 08:00] VITALS: BP 123/70
[2023-07-22] MEDS: ULTRAM 50 MG PO (08:08)
[2023-07-22] MEDS: VITAMIN B1 100 MG PO (08:11)
[2023-07-22] MEDS: NEURONTIN 300 MG PO ×3 (08:11→21:42)
[2023-07-22] MEDS: CYMBALTA DELAYED RELEASE 30 MG PO ×2 (08:11→19:35)
[2023-07-22] MEDS: LOPRESSOR 25 MG PO (08:11)
[2023-07-22] MEDS: ASPIR LOW (ENTERIC COATED) 81 MG PO (08:11)
[2023-07-22] MEDS: PROTONIX 40 MG PO (08:12)
[2023-07-22] MEDS: HEPARIN 5000 UNITS SC (08:12)
[2023-07-22] MEDS: NORVASC 5 MG PO (08:12)
[2023-07-22] MEDS: DAKIN'S SOLUTION 0.25% 1/2 STRENGTH 1 ML TOPICAL (08:39)
[2023-07-22] MEDS: VESICARE 10 MG PO (08:39)
[2023-07-22 08:54] LABS: Glycohemoglobin (HgbA1c) 5.4 % (4.0-5.6)
--- NOTE | 2023-07-22 09:48 | PHA.VAN.FU ---
Vancomycin Assessment / Plan
- Assessment
Renal Function: Stable
WBC's are: WNL
In the past 24 hrs, patient has been: Afebrile
Concomitant Antimicrobials: Piperacillin/Tazobactam
- Dosing Plan
Continue: 500mg Q12H
- Monitoring Plan
Peak Level: Ordered for 07/21 @2030
Trough Level: Ordered for 07/22 @0530
- Follow Up
Pharmacy will continue to follow.
Vancomycin Follow UP
- -
Patient Age: 72
Patient Sex: Female
Vancomycin Day #: 3
Indication: Skin And Soft Tissue
Requesting Provider: Dr. Pina, Dr. Quiroz
Pertinent Antimicrobial Allergies:
doxycycline - anaphylaxis
Height / Weight:
Height 5 ft 4 in
Actual Weight 55.2 kg
Pertinent Past Medical History: COPD (O2), L. AKA, PAD
- Vital Signs / Lab Results
Temp Pulse Resp BP Pulse Ox
97.4 F 63 18 123/70 96
07/22/23 08:00 07/22/23 08:11 07/22/23 08:00 07/22/23 08:11 07/22/23 08:00
Lab Results - Hematology
07/19/23 07/20/23 07/21/23
17:17 05:35 06:15
WBC 11.1 H 9.1 6.5
Lab Results - Chemistry
07/19/23 07/20/23
17:17 05:35
BUN 20 H 15
Creatinine 0.7 0.6
Estimated Creat Clear 71
Albumin 4.6 4.2
07/19/23 07/20/23
20:41 00:30
Lactic Acid 1.5 Cancelled
Microbiology Results
07/20/23 01:06 Wound Culture - Preliminary
Foot - Right Proteus mirabilis
Enterococcus species
Diptheroids
Gram Stain - Preliminary
07/20/23 17:05 MRSA Screen - Final
Nose No Methicillin Resistant Staphylococcus aureus isolated.
07/19/23 20:44 Blood Culture - Preliminary
Blood/Venous No Growth in 48 hours- Final report to follow
07/19/23 20:41 Blood Culture - Preliminary
Blood/Venous No Growth in 48 hours- Final report to follow
--- NOTE | 2023-07-22 12:36 | CM ---
Reviewed the chart notes and spoke with Kelly Admissions Liaison at [facility]. 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 No precert required to return. CM continues to be available to patient/family and is
monitoring medical plan for needs at discharge.
Call report to: [phone] ask for 'A' wing
Fax report to: [phone]
Medical necessity and transport forms on chart.
--- NOTE | 2023-07-22 14:22 | W.PN.HOSP.TC ---
Today's Communication/Plan
-
CW ABX
Await podiatry input regarding I&D
Assessment / Plan
Assessment / Plan
# Infected right plantar wound
# Recent right femorofemoral bypass
-cw Vancomycin/Zosyn
-Venous ultrasound no DVT
-Foot x-ray without evidence of osteomyelitis. MRI foot showing abscess and collection in foot - await furthe input from podiatry
- wound culture noted -cw abx per ID
-Vascular surgery following
-Hold Xarelto for potential debridement
History of peripheral arterial disease status post femorofemoral bypass in January 2023
Left AKA
-Continue aspirin
Chronic hypoxemic respiratory failure secondary to COPD on 3 L at night at baseline
-Continue inhalers
History of choledocholithiasis/ascending cholangitis
Prior DVT of right lower extremity in January 2023
-Hold Xarelto for now
Depression
-Continue duloxetine
TIA
Hyperlipidemia
Essential hypertension
-Continue amlodipine
GERD
Adrenal adenoma
Insomnia
Chronic anemia
Chronic pain
-Continue tramadol, gabapentin
Prednisone
-Only takes as needed for sore throat or cold
DNR/DNI
DVT prophylaxis�heparin
Regular diet
Anticipated Discharge: > 48 hours
Subjective/Interval History
-
Date of Service: July 22, 2023
Pain from the right foot is okay.
No fever.
Objective Data
-
Vital Signs:
Vital Signs
Temp Pulse Resp BP Pulse Ox
97.4 F 63 18 123/70 96
07/22/23 08:00 07/22/23 08:11 07/22/23 08:00 07/22/23 08:11 07/22/23 08:00
I&O
07/21/23 07/22/23 07/23/23
06:59 06:59 06:59
Intake Total 480 / 480
Output Total 1200 / 1200
Balance -720 / -720
Review of Systems
-
Respiratory: Denies Trouble Breathing
Cardiac: Denies Chest Pain
Abdomen/GI: Denies Nausea or Vomiting
Neuro: Denies Dizzy
Physical Exam
-
General: No Apparent Distress
HEENT: Moist Mucous Membranes
Respiratory: Clear to Auscultation
Cardiac: Regular Rhythm and S1/S2
Musculoskeletal: Other (RT FOOT IN DRESSING)
Neuro: AO x 3
Data Reviewed
-
MRI: Report Reviewed by me (MRI foot noted)
--- NOTE | 2023-07-22 15:10 | W.PN.ID1 ---
Date of Service
Date of Service: July 22, 2023
Today's Communication
- MRI with likely abscess, probable osteomyelitis of the 4th metatarsal
- will follow up podiatry plans
- if bone is not resected would request bone biopsy for culture
Assessment / Plan
R Plantar Foot Wound Infection
Probable Chronic Osteomyelitis of the 4th Metatarsal
AVN of metatarsals
PAD
Reported anaphylaxis to doxycycline
- blood cultures x2 in progress
- wound culture: proteus, enterococcus diptheroids
- MRI with likely abscess, probable osteomyelitis of the 4th metatarsal
- will follow up podiatry plans
- if bone is not resected would request bone biopsy for culture
- agree with vancomycin and zosyn at this time
- follow clinically
Subjective / Review of Systems
afebrile
bp stable
cr stable
blood cultures no growth to date
Vital Signs / Physical Exam
Vital Signs
Vital Signs
Temp Pulse Resp BP Pulse Ox
97.4 F 63 18 123/70 96
07/22/23 08:00 07/22/23 08:11 07/22/23 08:00 07/22/23 08:11 07/22/23 08:00
Physical Exam
Constitutional: No Acute Distress
Cardiovascular: Regular Rate and S1/S2; Negative Murmur or Rub
Pulmonary: Clear and Symmetric; Negative Wheezes or Rales
Gastrointestinal: Soft, Non Tender, Non Distended and Normal Bowel Sounds
Skin: Warm and Dry; Negative Rash or Jaundice
Wound: Other (dressing clean, dry, intact)
Neurological: Awake
Objective Data
Lab Data
Lab Results
07/21/23 06:15
07/20/23 05:35
ESR 2 mm/hour (0-20) 07/22/23 04:26
PT 14.9 Sec (11.4-14.6) H 07/19/23 17:17
INR 1.19 07/19/23 17:17
APTT 36.5 Sec (23.4-35.0) H 07/19/23 17:17
Estimated Creat Clear 71 ml/min 07/20/23 05:35
Lactic Acid Cancelled 07/20/23 00:30
Total Bilirubin 0.9 mg/dl (0.2-1.3) 07/20/23 05:35
AST 35 U/L (14-36) 07/20/23 05:35
ALT 27 U/L (0-35) 07/20/23 05:35
Alkaline Phosphatase 75 U/L (38-126) 07/20/23 05:35
C-Reactive Protein < 5.00 mg/L (0.0-10.00) 07/22/23 04:26
Most recent labs reviewed.
Micro Results:
07/20/23 01:06 Wound Culture - Preliminary
Foot - Right Proteus mirabilis
Enterococcus species
Diptheroids
Gram Stain - Preliminary
07/20/23 17:05 MRSA Screen - Final
Nose No Methicillin Resistant Staphylococcus aureus isolated.
07/19/23 20:44 Blood Culture - Preliminary
Blood/Venous No Growth in 48 hours- Final report to follow
07/19/23 20:41 Blood Culture - Preliminary
Blood/Venous No Growth in 48 hours- Final report to follow
[2023-07-22 15:12] VITALS: BP 128/73
--- NOTE | 2023-07-22 15:15 | W.PN.POD ---
Today's Communication
Today's Communication
Abscess right foot-confirmed on MRI, AVN of metatarsal incidental finding
->will take to OR 07/23/23 for I&D , will likely apply wound vac right foot 07/23
--> consult [employer] for offloading DH walker shoe right foot
-->NPO orders written, hold sq hep for tonight and in am tmrwAbscess right foot-confirmed on MRI, AVN of metatarsal incidental finding
->will take to OR 07/23/23 for I&D , will likely apply wound vac right foot 07/23
--> consult [employer] for offloading DH walker shoe right foot
-->NPO orders written, hold sq hep for tonight and in am tmrw
Assessment / Plan
-
PAD
S/P AKA LLE
Gait dysfunction
Abscess right foot-confirmed on MRI, AVN of metatarsal incidental finding
->will take to OR 07/23/23 for I&D , will likely apply wound vac right foot 07/23
--> consult [employer] for offloading DH walker shoe right foot
-->NPO orders written, hold sq hep for tonight and in am tmrw
Subjective
Chief Complaint
right foot infection
Subjective
Patient with ongoing pain and drainage right foot
Objective
Temp Pulse Resp BP Pulse Ox
98.7 F 66 16 128/73 95
07/22/23 15:12 07/22/23 15:12 07/22/23 15:12 07/22/23 15:12 07/22/23 15:12
07/21/23 06:15
07/20/23 05:35
Vital Signs and Lab results were reviewed.
Inspection: Cellulitis, Inflammation, Ulcer and Infection
Review of Systems
Review of Systems
Review of Systems: No Fever, No Chills, No Headache and No Joint Pain
Physical Exam
Physical Exam
General: Comfortable and Conversant
Musculoskeletal: No Cyanosis, Edema, Right Lower Extrem and Other (AKA left leg)
Skin: Warm, Dry, Non Pressure Ulcer (full thickness to tendon), Ischemic Ulcer and Other (abscess with purulent drainage right midfoot)
Neuro: AO x 3 and Protective Sensation Absent
Vascular: Pedal Hair Absent and Skin Temperature Warm to Warm
Dorsalis Pedis: Diminished
Posterior Tibialis: Absent
--- NOTE | 2023-07-22 16:17 | W.PN.UPDATE ---
Update Note
Progress Note Update
MRI report reviewed. I reviewed Dr. Wei note as well. I did spoken to her yesterday directly. I agree with her plan. I&D as noted planned for tomorrow. I will sign off. She can follow-up with me in the office in a few weeks. Please call
with questions.
[2023-07-22 19:28] LABS: Hepatitis C Antibody Negative (Negative)
[2023-07-22 20:51] LABS: Vancomycin Peak 19.6 ug/ml (18-26)
[2023-07-22 23:11] VITALS: BP 95/58
[2023-07-23] VITALS (10 sets, daily range): BP systolic 95–134; BP diastolic 55–100
[2023-07-23] MEDS: ZOSYN 50 IV ×2 (02:14→08:04)
[2023-07-23 06:30] LABS: Vancomycin Trough 11.7 ug/ml (5-20)
[2023-07-23] MEDS: VANCOCIN HCL 500 MG 100 IV ×2 (06:33→10:15)
[2023-07-23] MEDS: NEURONTIN 300 MG PO ×3 (08:02→21:00)
[2023-07-23] MEDS: VITAMIN B1 100 MG PO (08:02)
[2023-07-23] MEDS: ASPIR LOW (ENTERIC COATED) 81 MG PO (08:03)
[2023-07-23] MEDS: VESICARE 10 MG PO (08:03)
[2023-07-23] MEDS: LOPRESSOR 25 MG PO (08:03)
[2023-07-23] MEDS: PROTONIX 40 MG PO (08:03)
[2023-07-23] MEDS: NORVASC 5 MG PO (08:04)
[2023-07-23] MEDS: DAKIN'S SOLUTION 0.25% 1/2 STRENGTH 1 ML TOPICAL (08:04)
[2023-07-23] MEDS: CYMBALTA DELAYED RELEASE 30 MG PO ×2 (08:04→20:38)
[2023-07-23] MEDS: SYMBICORT 80/4.5 MCG INHALER 2 PUFF INH ×2 (08:07→20:06)
--- NOTE | 2023-07-23 09:31 | PHA.VAN.FU ---
Vancomycin Assessment / Plan
- Assessment
Renal Function: Stable
WBC's are: Trending Down
In the past 24 hrs, patient has been: Afebrile
Concomitant Antimicrobials: Piperacillin/tazobactam
- Assessment - Therapeutic Drug Monitoring
Extrapolated Cmax (mcg/mL): 21.3
Peak level was drawn: Appropriately
Extrapolated Cmin (mcg/mL): 11.4
Trough Drawn: Appropriately
Levels were drawn: At steady state
Calculated AUC (mcg*h/mL): 382
Calculated ke: 0.0567
Calculated half life (H): 12.2
Calculated Vd (L): 46.15
Calculated Vanc CL (ml/min): 43.61
- Dosing Plan
Adjust Regimen to: vancomycin 1250 mg q24h
New Regimen Predicts: AUC (498), Peak (36.4), Trough (10.2 )
Dosing Comments: will give dose of 500 mg x 1 this AM; then start 1250 mg q24 on 07/24/23
dosing switch to q24h dosing due to calc T1/2 > 12h
- Monitoring Plan
No level(s) ordered at this time: will consider levels after a couple days if still on
- Follow Up
Pharmacy will continue to follow.
Vancomycin Follow UP
- -
Patient Age: 72
Patient Sex: Female
Vancomycin Day #: 4
Indication: Skin And Soft Tissue
Requesting Provider: Dr. Pina, Dr. Quiroz
Pertinent Antimicrobial Allergies:
doxycycline - anaphylaxis
Height / Weight:
Height 5 ft 4 in
Actual Weight 55.2 kg
Pertinent Past Medical History: COPD (O2), L. AKA, PAD
- Vital Signs / Lab Results
Temp Pulse Resp BP Pulse Ox
97.7 F 68 16 125/75 95
07/23/23 07:00 07/23/23 08:12 07/23/23 08:12 07/23/23 08:03 07/23/23 08:12
Lab Results - Hematology
07/21/23
06:15
WBC 6.5
Microbiology Results
07/20/23 01:06 Wound Culture - Final
Foot - Right Proteus mirabilis
Enterococcus faecalis
Gram Stain - Final
07/19/23 20:44 Blood Culture - Preliminary
Blood/Venous No Growth in 72 hours- Final report to follow
07/19/23 20:41 Blood Culture - Preliminary
Blood/Venous No Growth in 72 hours- Final report to follow
07/20/23 17:05 MRSA Screen - Final
Nose No Methicillin Resistant Staphylococcus aureus isolated.
Therapeutic Drug Monitoring
Vancomycin Peak 19.6 ug/ml (18-26) 07/22/23 20:24
Vancomycin Trough 11.7 ug/ml (5-20) 07/23/23 05:30
--- NOTE | 2023-07-23 11:40 | CM ---
Reviewed the chart notes. Per ID notes, to OR 07/23/23 for I&D , will likely apply wound vac right foot 07/23. 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 CM continues to be available to patient/family and is monitoring medical plan for needs at
discharge.
Plan: Back to [facility] when medically necessary.
Call report to: [phone] ask for 'A' wing
Fax report to: [phone]
Medical necessity and transport forms on chart.
--- NOTE | 2023-07-23 12:33 | W.PN.ID1 ---
Date of Service
Date of Service: July 23, 2023
Today's Communication
request bone biopsy in the OR of the 4th metatarsal for culture if feasible - it would help to direct therapy
continue vancomycin, start unasyn, stop zosyn
Assessment / Plan
R Plantar Foot Wound Infection
Probable Chronic Osteomyelitis of the 4th Metatarsal
AVN of metatarsals
PAD
Reported anaphylaxis to doxycycline
- blood cultures x2 in progress
- wound culture: proteus, enterococcus, diptheroids
- MRI with likely abscess, probable osteomyelitis of the 4th metatarsal
- will follow up podiatry plans
- if bone is not resected would request bone biopsy for culture and will plan 6 weeks of IV therapy
- plan for OR 07/23/23 for I&D , likely wound vac right foot 07/23
- continue vancomycin, start unasyn stop zosyn
- follow clinically
Chief Complaint
-: Other (abscess, probable osteomyelitis)
Subjective / Review of Systems
afebrile
bp stable
for I&D tomorrow
blood cultures no growth to date
tolerating current therapies
Vital Signs / Physical Exam
Vital Signs
Vital Signs
Temp Pulse Resp BP Pulse Ox
97.7 F 68 16 125/75 93
07/23/23 07:00 07/23/23 08:12 07/23/23 08:12 07/23/23 08:03 07/23/23 11:48
Physical Exam
Constitutional: No Acute Distress
Cardiovascular: Regular Rate and S1/S2; Negative Murmur or Rub
Pulmonary: Clear and Symmetric; Negative Wheezes or Rales
Gastrointestinal: Soft, Non Tender, Non Distended and Normal Bowel Sounds
Skin: Warm and Dry; Negative Rash or Jaundice
Objective Data
Lab Data
Lab Results
07/21/23 06:15
07/20/23 05:35
ESR 2 mm/hour (0-20) 07/22/23 04:26
PT 14.9 Sec (11.4-14.6) H 07/19/23 17:17
INR 1.19 07/19/23 17:17
APTT 36.5 Sec (23.4-35.0) H 07/19/23 17:17
Estimated Creat Clear 71 ml/min 07/20/23 05:35
Lactic Acid Cancelled 07/20/23 00:30
Total Bilirubin 0.9 mg/dl (0.2-1.3) 07/20/23 05:35
AST 35 U/L (14-36) 07/20/23 05:35
ALT 27 U/L (0-35) 07/20/23 05:35
Alkaline Phosphatase 75 U/L (38-126) 07/20/23 05:35
C-Reactive Protein < 5.00 mg/L (0.0-10.00) 07/22/23 04:26
Most recent labs reviewed.
Micro Results:
07/20/23 01:06 Wound Culture - Final
Foot - Right Proteus mirabilis
Enterococcus faecalis
Gram Stain - Final
07/19/23 20:44 Blood Culture - Preliminary
Blood/Venous No Growth in 72 hours- Final report to follow
07/19/23 20:41 Blood Culture - Preliminary
Blood/Venous No Growth in 72 hours- Final report to follow
07/20/23 17:05 MRSA Screen - Final
Nose No Methicillin Resistant Staphylococcus aureus isolated.
--- NOTE | 2023-07-23 13:13 | W.PN.HOSP.TC ---
Today's Communication/Plan
-
CW ABX
OR today
Assessment / Plan
Assessment / Plan
# Infected right plantar wound
# Recent right femorofemoral bypass
-Venous ultrasound no DVT
-Foot x-ray without evidence of osteomyelitis. MRI foot showing abscess and collection in foot -OR today for I*D by medicaid billing clerk
- wound culture noted -cw abx per ID
-Vascular surgery following
-Hold Xarelto for potential debridement
History of peripheral arterial disease status post femorofemoral bypass in January 2023
Left AKA
-Continue aspirin
Chronic hypoxemic respiratory failure secondary to COPD on 3 L at night at baseline
-Continue inhalers
History of choledocholithiasis/ascending cholangitis
Prior DVT of right lower extremity in January 2023
-Hold Xarelto for now
Depression
-Continue duloxetine
TIA
Hyperlipidemia
Essential hypertension
-Continue amlodipine
GERD
Adrenal adenoma
Insomnia
Chronic anemia
Chronic pain
-Continue tramadol, gabapentin
Prednisone
-Only takes as needed for sore throat or cold
DNR/DNI
DVT prophylaxis�heparin
Regular diet
Anticipated Discharge: > 48 hours
Subjective/Interval History
-
Date of Service: July 23, 2023
pain from right foot ok
OR planned for today
Objective Data
-
Vital Signs:
Vital Signs
Temp Pulse Resp BP Pulse Ox
97.7 F 68 16 125/75 93
07/23/23 07:00 07/23/23 08:12 07/23/23 08:12 07/23/23 08:03 07/23/23 11:48
I&O
07/22/23 07/23/23 07/24/23
06:59 06:59 06:59
Intake Total 480 / 480 680 / 680
Output Total 1200 / 1200 2545 / 2545
Balance -720 / -720 -1865 / -1865
Review of Systems
-
Constitutional: Denies Fever
Respiratory: Denies Trouble Breathing
Cardiac: Denies Chest Pain
Abdomen/GI: Denies Abdominal Pain, Nausea or Vomiting
Neuro: Denies Dizzy
Physical Exam
-
General: No Apparent Distress
HEENT: Moist Mucous Membranes
Respiratory: Clear to Auscultation
Cardiac: Regular Rhythm and S1/S2
GI: Soft
Musculoskeletal: Other (rt foot in dressing)
Neuro: AO x 3
Psych: Calm
[2023-07-23] MEDS: UNASYN IV ×2 (13:53→20:38)
--- NOTE | 2023-07-23 15:20 | W.SUR.POST ---
Surgical Immediate Post Op
Note
Pre Op Diagnosis: Deep abscess right foot
Post Op Diagnosis: same
Procedure Performed: Incision and drainage right foot abscess
Primary Surgeon:Jonnie Wei
Secondary Surgeons:
NA
Anesthesia: IV sed + local donnie 10ml 1% Lido plain and intra op 10mL 0.5% marcaine plain
Estimated Blood Loss:
15mL
Fluids: NA
Drains/Shunts: NA
Specimens/Cultures:
NA
Doppler/Duplex/Angio (Y/N):
N
Complications: None
Operative Findings:
Abscess localized to the plantar medal arch with fascia involvement
--- NOTE | 2023-07-23 16:20 | PTCARENOTE ---
Pt received back from [employer] at bedside post I&D of the right foot, operative dressing checked, CDI. VSS, 2Lnc placed, pt resting comfortably with family at the bedside.
[2023-07-23] MEDS: ULTRAM 50 MG PO (16:33)
[2023-07-23] MEDS: HEPARIN 5000 UNITS SC (20:38)
[2023-07-24] MEDS: UNASYN IV ×4 (02:06→20:13)
[2023-07-24] MEDS: VANCOCIN 275 MG IV (05:26)
[2023-07-24] MEDS: ULTRAM 50 MG PO (05:52)
[2023-07-24 07:20] VITALS: BP 110/67
[2023-07-24] MEDS: SYMBICORT 80/4.5 MCG INHALER 2 PUFF INH ×2 (08:01→17:46)
[2023-07-24 08:31] LABS: Hematocrit 36.9 % (37.0-47.0); Hemoglobin 12.3 g/dL (12.0-16.0); Mean Corp Hgb Conc. 33.3 g/dL (33.0-37.0); Mean Corpuscular Hgb 31.3 pg (27.0-31.0); Mean Corpuscular Volume 93.9 fL (81.0-99.0); Platelet Count 229 10^3/uL (130-400); Red Blood Cell Count 3.93 10^6/uL (4.20-5.40); Red Cell Dist. Width 12.9 % (11.5-14.5); White Blood Cell Count 6.5 10^3/uL (4.8-10.8)
[2023-07-24] MEDS: VESICARE 10 MG PO (08:56)
[2023-07-24] MEDS: NEURONTIN 300 MG PO ×3 (08:56→21:41)
[2023-07-24] MEDS: VITAMIN B1 100 MG PO (08:56)
[2023-07-24] MEDS: NORVASC 5 MG PO (08:56)
[2023-07-24] MEDS: ASPIR LOW (ENTERIC COATED) 81 MG PO (08:56)
[2023-07-24] MEDS: PROTONIX 40 MG PO (08:56)
[2023-07-24] MEDS: CYMBALTA DELAYED RELEASE 30 MG PO ×2 (08:56→20:13)
[2023-07-24] MEDS: LOPRESSOR 25 MG PO (08:56)
[2023-07-24] MEDS: HEPARIN 5000 UNITS SC ×2 (08:57→20:13)
[2023-07-24] MEDS: DAKIN'S SOLUTION 0.25% 1/2 STRENGTH 473 ML TOPICAL (09:01)
[2023-07-24] MEDS: FLUSH (NSS) 2 FLUSH IV ×2 (09:01→13:40)
[2023-07-24 09:03] LABS: Blood Urea Nitrogen 15 mg/dl (7-17); Calcium 9.9 mg/dl (8.4-10.2); Carbon Dioxide 26 mmol/L (22-30); Chloride 99 mmol/L (98-107); Estimated Creatinine Clearance 71 ml/min; Glucose 158 mg/dl (70-99); Potassium 3.7 mmol/L (3.5-5.1); Sodium 135 mmol/L (135-145); eGFR > 60.00
[2023-07-24] MEDS: TYLENOL 650 MG PO (09:09)
--- NOTE | 2023-07-24 09:29 | W.PN.ID1 ---
Date of Service
Date of Service: July 24, 2023
Today's Communication
Continue abx.
Assessment / Plan
R Plantar Foot Wound Infection
Suspected Chronic Osteomyelitis of the 4th Metatarsal
AVN of metatarsals
PAD
Reported anaphylaxis to doxycycline
Recommendations:
- blood cultures x2 in progress; NG @ 4 days
- wound culture: Proteus, Enterococcus, diptheroids
- MRI with likely abscess, probable osteomyelitis of the 4th metatarsal
- S/P OR 07/23/23 for I&D
- continue vancomycin / unasyn
- follow clinically
����������������������������������������������������������.
Chief Complaint
-: Other (abscess, suspected osteomyelitis)
Subjective / Review of Systems
Review of Systems: No Fever and No Chills
Vital Signs / Physical Exam
Vital Signs
Vital Signs
Temp Pulse Resp BP Pulse Ox
97.6 F 70 14 110/67 92
07/24/23 07:20 07/24/23 08:06 07/24/23 08:06 07/24/23 07:20 07/24/23 08:06
Physical Exam
Constitutional: No Acute Distress, Comfortable and Non-toxic
Eyes: Sclera Anicteric
Cardiovascular: S1/S2; Negative S3/S4
Pulmonary: Non Labored
Extremities: Other (Right foot dressed with dressing and Rommel wrap.)
Skin: Warm and Dry; Negative Rash or Jaundice
Neurological: Awake and Alert
Psychological: Calm
Objective Data
Lab Data
Lab Results
07/24/23 08:12
ESR 2 mm/hour (0-20) 07/22/23 04:26
PT 14.9 Sec (11.4-14.6) H 07/19/23 17:17
INR 1.19 07/19/23 17:17
APTT 36.5 Sec (23.4-35.0) H 07/19/23 17:17
Estimated Creat Clear 71 ml/min 07/24/23 08:12
Lactic Acid Cancelled 07/20/23 00:30
Total Bilirubin 0.9 mg/dl (0.2-1.3) 07/20/23 05:35
AST 35 U/L (14-36) 07/20/23 05:35
ALT 27 U/L (0-35) 07/20/23 05:35
Alkaline Phosphatase 75 U/L (38-126) 07/20/23 05:35
C-Reactive Protein < 5.00 mg/L (0.0-10.00) 07/22/23 04:26
Most recent labs reviewed.
Micro Results:
07/19/23 20:44 Blood Culture - Preliminary
Blood/Venous No Growth in 4 days- Final report to follow
07/19/23 20:41 Blood Culture - Preliminary
Blood/Venous No Growth in 4 days- Final report to follow
07/20/23 01:06 Wound Culture - Final
Foot - Right Proteus mirabilis
Enterococcus faecalis
Gram Stain - Final
07/20/23 17:05 MRSA Screen - Final
Nose No Methicillin Resistant Staphylococcus aureus isolated.
--- NOTE | 2023-07-24 11:51 | PHA.VAN.FU ---
Vancomycin Assessment / Plan
- Assessment
Renal Function: Stable
WBC's are: WNL
In the past 24 hrs, patient has been: Afebrile
Concomitant Antimicrobials: ampicillin/sulbactam
- Dosing Plan
Continue: vancomycin 1250 mg q24h - new regimen started 07/23
- Monitoring Plan
Peak Level: 07/25/23 0900
Trough Level: 07/26/23 0530
- Follow Up
Pharmacy will continue to follow.
Vancomycin Follow UP
- -
Patient Age: 72
Patient Sex: Female
Vancomycin Day #: 5
Indication: Skin And Soft Tissue
Requesting Provider: Dr. Pina, Dr. Quiroz
Pertinent Antimicrobial Allergies:
doxycycline - anaphylaxis
Height / Weight:
Height 5 ft 4 in
Actual Weight 55.2 kg
Pertinent Past Medical History: COPD (O2), L. AKA, PAD
- Vital Signs / Lab Results
Temp Pulse Resp BP Pulse Ox
97.6 F 70 14 110/67 92
07/24/23 07:20 07/24/23 08:06 07/24/23 08:06 07/24/23 07:20 07/24/23 08:06
Lab Results - Hematology
07/24/23
08:12
WBC 6.5
Lab Results - Chemistry
07/24/23
08:12
BUN 15
Creatinine 0.5 L
Estimated Creat Clear 71
Microbiology Results
07/19/23 20:44 Blood Culture - Preliminary
Blood/Venous No Growth in 4 days- Final report to follow
07/19/23 20:41 Blood Culture - Preliminary
Blood/Venous No Growth in 4 days- Final report to follow
07/20/23 01:06 Wound Culture - Final
Foot - Right Proteus mirabilis
Enterococcus faecalis
Gram Stain - Final
07/20/23 17:05 MRSA Screen - Final
Nose No Methicillin Resistant Staphylococcus aureus isolated.
Therapeutic Drug Monitoring
Vancomycin Peak 19.6 ug/ml (18-26) 07/22/23 20:24
Vancomycin Trough 11.7 ug/ml (5-20) 07/23/23 05:30
--- NOTE | 2023-07-24 13:07 | W.PN.POD ---
Today's Communication
Today's Communication
Wound dressing changed, packing removed and irrigated. I will opt for delayed primary repair on Wednesday/Wednesday since the wound bed is clean, if able I will try to reduce size of the original wound as well and likely apply a wound vac over whatever
remains. IV abt for proteus SSI per ID.
WB up to 20 feet if able once shoe available with assist, she is a fall risk w/o prosthetic leg and recommended that family get the leg at the SN[facility] she came from
Will re eval 07/24 and schedule add on to OR schedule for Wednesday
Assessment / Plan
-
PAD-stable
S/P AKA LLE
Gait dysfunction
Abscess right foot-confirmed on MRI, AVN of metatarsal incidental finding
->POD #1 S/p I&D and debridement right foot abscess
Subjective
Chief Complaint
Right foot abscess/cellulitis
Subjective
Patient states she has minimal discomfort right foot, feels well
Objective
Temp Pulse Resp BP Pulse Ox
97.6 F 70 14 110/67 92
07/24/23 07:20 07/24/23 08:06 07/24/23 08:06 07/24/23 07:20 07/24/23 08:06
07/24/23 08:12
07/24/23 08:12
Vital Signs and Lab results were reviewed.
Inspection: Cellulitis (improved)
Review of Systems
Review of Systems
Review of Systems: No Fever, No Chills, No Headache, No Nausea and No Diarrhea
Physical Exam
Physical Exam
General: No Apparent Distress, Comfortable and Conversant
Musculoskeletal: No Cyanosis, No Edema and Other (AKA LLE)
Skin: Warm, Dry and Non Pressure Ulcer (right foot wound- clean, non purulent, no odor, 100% granular)
Neuro: AO x 3 and Protective Sensation Diminished
Vascular: Capillary Refill Intact, Pedal Hair Absent and Skin Temperature Warm to Cool
Dorsalis Pedis: Diminished
Posterior Tibialis: Diminished
--- NOTE | 2023-07-24 13:32 | W.PN.HOSP.TC ---
Today's Communication/Plan
-
cw abx and wound care
Assessment / Plan
Assessment / Plan
# Infected right plantar wound with abscess
# Recent right femorofemoral bypass
-Venous ultrasound no DVT
-Foot x-ray without evidence of osteomyelitis. MRI foot showing abscess and collection in foot -s/p I*D by podatrist 07/22.Relook on Wednesday and possible closure of wound then.
- wound culture noted -cw abx per ID
-Vascular surgery following
-Hold Xarelto till cleared by podiatry
History of peripheral arterial disease status post femorofemoral bypass in January 2023
Left AKA
-Continue aspirin
Chronic hypoxemic respiratory failure secondary to COPD on 3 L at night at baseline
-Continue inhalers
History of choledocholithiasis/ascending cholangitis
Prior DVT of right lower extremity in January 2023
-Hold Xarelto for now
Depression
-Continue duloxetine
TIA
Hyperlipidemia
Essential hypertension
-Continue amlodipine
GERD
Adrenal adenoma
Insomnia
Chronic anemia
Chronic pain
-Continue tramadol, gabapentin
Prednisone
-Only takes as needed for sore throat or cold
DNR/DNI
DVT prophylaxis�heparin
Regular diet
Anticipated Discharge: > 48 hours
Subjective/Interval History
-
Date of Service: July 24, 2023
Doing ok from Postop pain from right foot.
No fever chills.
Objective Data
-
Labs:
Laboratory Results
07/24/23
08:12
WBC 6.5
Hgb 12.3
Hct 36.9 L
Plt Count 229
Sodium 135
Potassium 3.7
Chloride 99
Carbon Dioxide 26
BUN 15
Creatinine 0.5 L
Glucose 158 H
Calcium 9.9
Vital Signs:
Vital Signs
Temp Pulse Resp BP Pulse Ox
97.6 F 70 14 110/67 92
07/24/23 07:20 07/24/23 08:06 07/24/23 08:06 07/24/23 07:20 07/24/23 08:06
I&O
07/23/23 07/24/23 07/25/23
06:59 06:59 07:59
Intake Total 680 / 680 490 / 490
Output Total 2545 / 2545 900 / 900
Balance -1865 / -1865 -410 / -410
Review of Systems
-
Respiratory: Denies Trouble Breathing
Cardiac: Denies Chest Pain
Abdomen/GI: Denies Nausea or Vomiting
Neuro: Denies Dizzy
Physical Exam
-
General: No Apparent Distress
HEENT: Moist Mucous Membranes
Respiratory: Clear to Auscultation
Cardiac: Regular Rhythm and S1/S2
GI: Soft
Musculoskeletal: Other (rt foot in dressing)
Neuro: AO x 3
Psych: Calm
Data Reviewed
-
Labs: Labs Reviewed by me
[2023-07-24 15:20] VITALS: BP 114/60
--- NOTE | 2023-07-24 15:38 | CHAP ---
Linh was in good spirits, glad that her surgery went well. She shared about recent losses in her life, and about the support she has received from family and [place] community. God's noni has brought her through many trials, and we prayed that He
will continue to be with her and help her heal.
[2023-07-24 23:41] VITALS: BP 111/55
[2023-07-25] MEDS: UNASYN IV ×4 (01:28→22:09)
[2023-07-25] MEDS: VANCOCIN 275 MG IV (06:04)
[2023-07-25 07:14] VITALS: BP 120/66
[2023-07-25] MEDS: SYMBICORT 80/4.5 MCG INHALER 2 PUFF INH ×2 (07:51→18:08)
[2023-07-25] MEDS: NEURONTIN 300 MG PO ×3 (08:18→22:09)
[2023-07-25] MEDS: CYMBALTA DELAYED RELEASE 30 MG PO ×2 (08:18→22:09)
[2023-07-25] MEDS: VESICARE 10 MG PO (08:20)
[2023-07-25] MEDS: PROTONIX 40 MG PO (08:20)
[2023-07-25] MEDS: LOPRESSOR 25 MG PO (08:21)
[2023-07-25] MEDS: VITAMIN B1 100 MG PO (08:21)
[2023-07-25] MEDS: ASPIR LOW (ENTERIC COATED) 81 MG PO (08:21)
[2023-07-25] MEDS: HEPARIN 5000 UNITS SC (08:22)
[2023-07-25] MEDS: DAKIN'S SOLUTION 0.25% 1/2 STRENGTH 473 ML TOPICAL (08:32)
[2023-07-25] MEDS: NORVASC 5 MG PO (08:38)
[2023-07-25 08:57] LABS: Vancomycin Peak 27.4 ug/ml (18-26)
[2023-07-25] MEDS: TYLENOL 650 MG PO (09:36)
--- NOTE | 2023-07-25 09:43 | PHA.VAN.FU ---
Vancomycin Assessment / Plan
- Assessment
Renal Function: SCR Decreasing
WBC's are: WNL
In the past 24 hrs, patient has been: Afebrile
Concomitant Antimicrobials: ampicillin/sulbactam
- Assessment - Therapeutic Drug Monitoring
Extrapolated Cmax (mcg/mL): peak drawn this AM = 27.4
Peak level was drawn: Appropriately
vancomycin trough due 52907/26/23
- Dosing Plan
Continue: vancomycin 1250 mg q24h
- Monitoring Plan
Trough Level: ordered for 529 tomorrow
- Follow Up
Pharmacy will continue to follow.
Vancomycin Follow UP
- -
Patient Age: 72
Patient Sex: Female
Vancomycin Day #: 6
Indication: Skin And Soft Tissue
Requesting Provider: Dr. Pina, Dr. Quiroz
Pertinent Antimicrobial Allergies:
doxycycline - anaphylaxis
Height / Weight:
Height 5 ft 4 in
Actual Weight 55.2 kg
Pertinent Past Medical History: COPD (O2), L. AKA, PAD
- Vital Signs / Lab Results
Temp Pulse Resp BP Pulse Ox
97.7 F 66 14 120/66 95
07/25/23 07:14 07/25/23 08:21 07/25/23 07:54 07/25/23 08:21 07/25/23 07:54
Lab Results - Hematology
07/24/23
08:12
WBC 6.5
Lab Results - Chemistry
07/24/23
08:12
BUN 15
Creatinine 0.5 L
Estimated Creat Clear 71
Microbiology Results
07/19/23 20:44 Blood Culture - Final
Blood/Venous No Growth - Final Report
07/19/23 20:41 Blood Culture - Final
Blood/Venous No Growth - Final Report
07/20/23 01:06 Wound Culture - Final
Foot - Right Proteus mirabilis
Enterococcus faecalis
Gram Stain - Final
Therapeutic Drug Monitoring
Vancomycin Peak 27.4 ug/ml (18-26) H 07/25/23 08:28
Vancomycin Trough 11.7 ug/ml (5-20) 07/23/23 05:30
--- NOTE | 2023-07-25 11:48 | W.PN.ID1 ---
Date of Service
Date of Service: July 25, 2023
Today's Communication
Narrow to Unasyn alone.
Assessment / Plan
R Plantar Foot Wound Infection
Suspected Chronic Osteomyelitis of the 4th Metatarsal
AVN of metatarsals
PAD
Reported anaphylaxis to doxycycline
Recommendations:
- blood cultures negative
- wound culture: Proteus, Enterococcus, diptheroids
- MRI with likely abscess, probable osteomyelitis of the 4th metatarsal
- S/P OR 07/23/23 for I&D
- continue unasyn. D/C further vanco
- follow clinically
����������������������������������������������������������.
Chief Complaint
-: Other (abscess, suspected osteomyelitis right foot)
Subjective / Review of Systems
Review of Systems: No Fever and No Chills
Vital Signs / Physical Exam
Vital Signs
Vital Signs
Temp Pulse Resp BP Pulse Ox
97.7 F 66 14 120/66 95
07/25/23 07:14 07/25/23 08:21 07/25/23 07:54 07/25/23 08:21 07/25/23 07:54
Physical Exam
Constitutional: No Acute Distress, Comfortable, Chronically Ill and Non-toxic
Eyes: Sclera Anicteric
Cardiovascular: S1/S2; Negative S3/S4
Pulmonary: Non Labored; Negative Wheezes or Rales
Gastrointestinal: Soft, Non Tender and Non Distended
Wound: Other (Right foot with plantar incision currently packed. Dressing over top with some strikethrough. No malodor. No periwound erythema.)
Neurological: Awake and Alert
Psychological: Calm
Objective Data
Lab Data
Lab Results
07/24/23 08:12
07/24/23 08:12
ESR 2 mm/hour (0-20) 07/22/23 04:26
PT 14.9 Sec (11.4-14.6) H 07/19/23 17:17
INR 1.19 07/19/23 17:17
APTT 36.5 Sec (23.4-35.0) H 07/19/23 17:17
Estimated Creat Clear 71 ml/min 07/24/23 08:12
Lactic Acid Cancelled 07/20/23 00:30
Total Bilirubin 0.9 mg/dl (0.2-1.3) 07/20/23 05:35
AST 35 U/L (14-36) 07/20/23 05:35
ALT 27 U/L (0-35) 07/20/23 05:35
Alkaline Phosphatase 75 U/L (38-126) 07/20/23 05:35
C-Reactive Protein < 5.00 mg/L (0.0-10.00) 07/22/23 04:26
Most recent labs reviewed.
Micro Results:
07/19/23 20:44 Blood Culture - Final
Blood/Venous No Growth - Final Report
07/19/23 20:41 Blood Culture - Final
Blood/Venous No Growth - Final Report
07/20/23 01:06 Wound Culture - Final
Foot - Right Proteus mirabilis
Enterococcus faecalis
Gram Stain - Final
07/20/23 17:05 MRSA Screen - Final
Nose No Methicillin Resistant Staphylococcus aureus isolated.
Wound/abscess/other Cult Final 07/23/23-922
- Right foot -
Few Proteus mirabilis
Few Enterococcus faecalis
Moderate Diptheroids
1. Proteus mirabilis
M.I.C. RX
--------- ---
Amoxicillin/Potas. Clavulanate <=8/4 S
Ampicillin <=8 S
Ampicillin/Sulbactam <=8/4 S
Cefazolin <=2 S
Ertapenem <=0.5 S
Ciprofloxacin <=0.25 S
Gentamicin <=4 S
Levofloxacin <=0.5 S
Meropenem <=1 S
Piperacillin/Tazobactam <=16 S
Tobramycin <=4 S
Trimethoprim/Sulfamethoxazole <=2/38 S
2. Enterococcus faecalis
M.I.C. RX
--------- ---
Ampicillin <=2 S
Gentamicin Synergy Screen <=500 S
Vancomycin 2 S
Care Review
Plan reviewed with: Physician (Hospitalist)
--- NOTE | 2023-07-25 12:48 | W.PN.HOSP.TC ---
Today's Communication/Plan
-
Wound closure in am likely
CW ABX
Assessment / Plan
Assessment / Plan
# Infected right plantar wound with abscess
# Recent right femorofemoral bypass
-Venous ultrasound no DVT
-Foot x-ray without evidence of osteomyelitis. MRI foot showing abscess and collection in foot -s/p I*D by podatrist 07/22.Relook on Wednesday and possible closure of wound then.
- wound culture noted -cw abx per ID -consider dc vancomycin
-Vascular surgery signed off
-Hold Xarelto till cleared by podiatry
History of peripheral arterial disease status post femorofemoral bypass in January 2023
Left AKA
-Continue aspirin
Chronic hypoxemic respiratory failure secondary to COPD on 3 L at night at baseline
-Continue inhalers
History of choledocholithiasis/ascending cholangitis
Prior DVT of right lower extremity in January 2023
-Hold Xarelto for now
Depression
-Continue duloxetine
TIA
Hyperlipidemia
Essential hypertension
-Continue amlodipine
GERD
Adrenal adenoma
Insomnia
Chronic anemia
Chronic pain
-Continue tramadol, gabapentin
Prednisone
-Only takes as needed for sore throat or cold
DNR/DNI
DVT prophylaxis�heparin
Regular diet
Anticipated Discharge: 24 - 48 hours
Subjective/Interval History
-
Date of Service: July 25, 2023
Pain okay from right foot I&D site. No fevers.
Objective Data
-
Vital Signs:
Vital Signs
Temp Pulse Resp BP Pulse Ox
97.7 F 66 14 120/66 95
07/25/23 07:14 07/25/23 08:21 07/25/23 07:54 07/25/23 08:21 07/25/23 07:54
I&O
07/24/23 07/25/23 07/26/23
05:59 06:59 06:59
Intake Total
Output Total
Balance
Review of Systems
-
Constitutional: Denies Fever
EENT: Denies Sore Throat
Respiratory: Denies Cough or Trouble Breathing
Cardiac: Denies Chest Pain
Abdomen/GI: Denies Abdominal Pain, Nausea or Vomiting
Neuro: Denies Dizzy
Physical Exam
-
General: No Apparent Distress
HEENT: Moist Mucous Membranes
Respiratory: Clear to Auscultation
Cardiac: Regular Rhythm and S1/S2
Musculoskeletal: Other (rt ventral foot in abd pad dressing .)
Neuro: AO x 3
Psych: Calm
Data Reviewed
-
Labs: Labs Reviewed by me
--- NOTE | 2023-07-25 14:40 | W.PN.POD ---
Today's Communication
Today's Communication
Wound bed clean and can be closed primarily. We discussed excision of wound edges and attempting a partial to total closure of the plantar ulceration. If able to be closed will do so, however if not, then will plan to apply vac dressing to remaining
open wound and will need to continue as out patient or upon transfer to SNF.
Patient added to OR schedule for 07/26/23-likely in afternoon
NPO orders on chart, hold sq hep tonight and in am, should be ok to resume 07/26/23 pm
Assessment / Plan
-
PAD-stable S/P revasc
S/P AKA LLE
Gait dysfunction
Abscess right foot-confirmed on MRI, AVN of metatarsal incidental finding
->POD #2 S/p I&D and debridement right foot abscess
Subjective
Chief Complaint
right foot wound S/P I&D abscess
Subjective
Patient denies pain to right foot today
POD #2 S/P I&D abscess
Objective
Temp Pulse Resp BP Pulse Ox
97.7 F 66 14 120/66 95
07/25/23 07:14 07/25/23 08:21 07/25/23 07:54 07/25/23 08:21 07/25/23 08:00
07/24/23 08:12
07/24/23 08:12
Vital Signs and Lab results were reviewed.
Inspection: Cellulitis (resolved)
Review of Systems
Review of Systems
Review of Systems: No Fever, No Chills, No Headache, No Nausea, No Diarrhea and No Joint Pain
Physical Exam
Physical Exam
General: No Apparent Distress and Conversant
Musculoskeletal: No Clubbing, No Cyanosis and Other (AKA LLE)
Skin: Warm, Dry and Wound (Clean and granular, epibole at periphery of original wound, wound size measured today 3cm long x 1cm wide x 1.5 cm deep)
Neuro: AO x 3
Vascular: Capillary Refill Intact and Skin Temperature Warm to Warm
Dorsalis Pedis: Diminished (right foot)
Posterior Tibialis: Diminished (right foot, but palpable)
[2023-07-25] MEDS: FLUSH (NSS) 2 FLUSH IV (14:58)
[2023-07-25 15:43] VITALS: BP 107/68
[2023-07-25 23:10] VITALS: BP 108/64
[2023-07-26] VITALS (11 sets, daily range): BP systolic 108–142; BP diastolic 65–79; BMI 27.8
[2023-07-26] MEDS: UNASYN IV ×2 (02:25→08:36)
[2023-07-26] MEDS: SYMBICORT 80/4.5 MCG INHALER 2 PUFF INH ×2 (07:29→20:11)
[2023-07-26] MEDS: VESICARE 10 MG PO (08:33)
[2023-07-26] MEDS: ASPIR LOW (ENTERIC COATED) PO (08:34)
[2023-07-26] MEDS: LOPRESSOR 25 MG PO (08:34)
[2023-07-26] MEDS: VITAMIN B1 100 MG PO (08:34)
[2023-07-26] MEDS: PROTONIX 40 MG PO (08:35)
[2023-07-26] MEDS: NEURONTIN 300 MG PO ×2 (08:35→21:13)
[2023-07-26] MEDS: CYMBALTA DELAYED RELEASE 30 MG PO ×2 (08:35→20:57)
[2023-07-26] MEDS: NORVASC 5 MG PO (08:36)
[2023-07-26] MEDS: DAKIN'S SOLUTION 0.25% 1/2 STRENGTH 1 ML TOPICAL (09:11)
--- NOTE | 2023-07-26 10:36 | W.PN.ID1 ---
Date of Service
Date of Service: July 26, 2023
Today's Communication
- plan 6 weeks of IV antibiotics for possible osteomyelitis of the 4th metatarsal
Assessment / Plan
R Plantar Foot Wound Infection
Suspected Chronic Osteomyelitis of the 4th Metatarsal
AVN of metatarsals
PAD
Reported anaphylaxis to doxycycline
Recommendations:
- blood cultures negative
- wound culture: Proteus, Enterococcus, diptheroids
- MRI with likely abscess, probable osteomyelitis of the 4th metatarsal
- S/P OR 07/23/23 for I&D
- restart vancomycin - continue to cover the diptheroid (moderate) which could be a pathogen in this case
- start ertapenem
- picc line
- plan 6 weeks of IV antibiotics for possible osteomyelitis of the 4th metatarsal
- for possible delayed primary closure
����������������������������������������������������������.
Chief Complaint
-: Other (abscess, suspected osteomyelitis right foot)
Subjective / Review of Systems
afebrile
bp stable
without leukocytosis
cr stable
dressing clean, dry, intact
no complaints
Vital Signs / Physical Exam
Vital Signs
Vital Signs
Temp Pulse Resp BP Pulse Ox
97.8 F 70 16 123/73 94
07/26/23 07:50 07/26/23 08:34 07/26/23 07:50 07/26/23 08:34 07/26/23 07:50
Physical Exam
Constitutional: No Acute Distress
Cardiovascular: Regular Rate and S1/S2; Negative Murmur or Rub
Pulmonary: Clear and Symmetric; Negative Wheezes or Rales
Gastrointestinal: Soft, Non Tender, Non Distended and Normal Bowel Sounds
Skin: Warm and Dry; Negative Rash or Jaundice
Wound: Other (dressing clean, dry, intact)
Objective Data
Lab Data
Lab Results
07/24/23 08:12
07/24/23 08:12
ESR 2 mm/hour (0-20) 07/22/23 04:26
PT 14.9 Sec (11.4-14.6) H 07/19/23 17:17
INR 1.19 07/19/23 17:17
APTT 36.5 Sec (23.4-35.0) H 07/19/23 17:17
Estimated Creat Clear 71 ml/min 07/24/23 08:12
Lactic Acid Cancelled 07/20/23 00:30
Total Bilirubin 0.9 mg/dl (0.2-1.3) 07/20/23 05:35
AST 35 U/L (14-36) 07/20/23 05:35
ALT 27 U/L (0-35) 07/20/23 05:35
Alkaline Phosphatase 75 U/L (38-126) 07/20/23 05:35
C-Reactive Protein < 5.00 mg/L (0.0-10.00) 07/22/23 04:26
Most recent labs reviewed.
Micro Results:
07/19/23 20:44 Blood Culture - Final
Blood/Venous No Growth - Final Report
07/19/23 20:41 Blood Culture - Final
Blood/Venous No Growth - Final Report
07/20/23 01:06 Wound Culture - Final
Foot - Right Proteus mirabilis
Enterococcus faecalis
Gram Stain - Final
07/20/23 17:05 MRSA Screen - Final
Nose No Methicillin Resistant Staphylococcus aureus isolated.
Wound/abscess/other Cult Final 07/23/23-922
- Right foot -
Few Proteus mirabilis
Few Enterococcus faecalis
Moderate Diptheroids
1. Proteus mirabilis
M.I.C. RX
--------- ---
Amoxicillin/Potas. Clavulanate <=8/4 S
Ampicillin <=8 S
Ampicillin/Sulbactam <=8/4 S
Cefazolin <=2 S
Ertapenem <=0.5 S
Ciprofloxacin <=0.25 S
Gentamicin <=4 S
Levofloxacin <=0.5 S
Meropenem <=1 S
Piperacillin/Tazobactam <=16 S
Tobramycin <=4 S
Trimethoprim/Sulfamethoxazole <=2/38 S
2. Enterococcus faecalis
M.I.C. RX
--------- ---
Ampicillin <=2 S
Gentamicin Synergy Screen <=500 S
Vancomycin 2 S
--- NOTE | 2023-07-26 10:47 | PHA.VAN.FU ---
Vancomycin Assessment / Plan
- Assessment
Renal Function: Stable
WBC's are: WNL
In the past 24 hrs, patient has been: Afebrile
Concomitant Antimicrobials: ceftriaxone, metronidazole
- Dosing Plan
Continue: vanc 1250 mg q24h
Vancomycin d/c 07/24 [id number] daily dose. Vancomycin reordered 07/25, reinitiating 1250mg q24h dosing, first dose now.
- Monitoring Plan
No level(s) ordered at this time: consider in the upcoming days
- Follow Up
Pharmacy will continue to follow.
Vancomycin Follow UP
- -
Patient Age: 72
Patient Sex: Female
Vancomycin Day #: 7
Indication: Skin And Soft Tissue
Requesting Provider: Dr. Pina, Dr. Quiroz
Pertinent Antimicrobial Allergies:
doxycycline - anaphylaxis
Height / Weight:
Height 5 ft 4 in
Actual Weight 55.2 kg
Pertinent Past Medical History: COPD (O2), L. AKA, PAD
- Vital Signs / Lab Results
Temp Pulse Resp BP Pulse Ox
97.8 F 70 16 123/73 94
07/26/23 07:50 07/26/23 08:34 07/26/23 07:50 07/26/23 08:34 07/26/23 07:50
Lab Results - Hematology
07/24/23
08:12
WBC 6.5
Lab Results - Chemistry
07/24/23
08:12
BUN 15
Creatinine 0.5 L
Estimated Creat Clear 71
Microbiology Results
07/19/23 20:44 Blood Culture - Final
Blood/Venous No Growth - Final Report
07/19/23 20:41 Blood Culture - Final
Blood/Venous No Growth - Final Report
Therapeutic Drug Monitoring
Vancomycin Peak 27.4 ug/ml (18-26) H 07/25/23 08:28
Vancomycin Trough 11.7 ug/ml (5-20) 07/23/23 05:30
--- NOTE | 2023-07-26 11:22 | CM ---
Addendum entered by Barby Gomez RN 07/26/23 16:19:
IMM placed on chart.
Original Note:
Reviewed the chart notes. Referral sent to [facility] along with script for abx. CM continues to be available to patient/family and is monitoring medical plan for needs at discharge.
Plan: Discharge back to [facility] when medically stable. No precert required due to patient using all skilled days.
[2023-07-26] MEDS: VANCOCIN 275 MG IV (12:38)
[2023-07-26] MEDS: INVANZ 60 MG IV (12:58)
--- NOTE | 2023-07-26 14:04 | W.PN.HOSP.TC ---
Today's Communication/Plan
-
-possible wound closure today
- restart vancomycin - continue to cover the diptheroid (moderate) which could be a pathogen in this case
- start ertapenem
- picc line
- plan 6 weeks of IV antibiotics
Assessment / Plan
Assessment / Plan
# Infected right plantar wound with abscess
# Recent right femorofemoral bypass
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
-Venous ultrasound no DVT
-Foot x-ray without evidence of osteomyelitis. MRI foot showing abscess and collection in foot -s/p I*D by podatrist 07/22.Relook on Wednesday and possible closure of wound today
- wound culture noted
-- restart vancomycin - continue to cover the diptheroid (moderate) which could be a pathogen in this case
- start ertapenem
- picc line
- plan 6 weeks of IV antibiotics for possible osteomyelitis of the 4th metatarsal
-Vascular surgery signed off
-Hold Xarelto till cleared by podiatry
History of peripheral arterial disease status post femorofemoral bypass in January 2023
Left AKA
-Continue aspirin
Chronic hypoxemic respiratory failure secondary to COPD on 3 L at night at baseline
-Continue inhalers
History of choledocholithiasis/ascending cholangitis
Prior DVT of right lower extremity in January 2023
-Hold Xarelto for now
Depression
-Continue duloxetine
TIA
Hyperlipidemia
Essential hypertension
-Continue amlodipine
GERD
Adrenal adenoma
Insomnia
Chronic anemia
Chronic pain
-Continue tramadol, gabapentin
Prednisone
-Only takes as needed for sore throat or cold
DNR/DNI
DVT prophylaxis�heparin
Regular diet
Anticipated Discharge: Within 24 hours
Subjective/Interval History
-
Date of Service: July 26, 2023
No events overnight
Objective Data
-
Vital Signs:
Vital Signs
Temp Pulse Resp BP Pulse Ox
97.8 F 70 16 123/73 94
07/26/23 07:50 07/26/23 08:34 07/26/23 07:50 07/26/23 08:34 07/26/23 07:50
I&O
07/25/23 07/26/23 07/27/23
06:59 06:59 06:59
Intake Total 1160 / 1160
Output Total 400 / 400
Balance 760 / 760
Review of Systems
-
Constitutional: Denies Fever
EENT: Denies Sore Throat
Respiratory: Denies Cough or Trouble Breathing
Cardiac: Denies Chest Pain
Abdomen/GI: Denies Abdominal Pain, Nausea or Vomiting
Neuro: Denies Dizzy
Physical Exam
-
General: No Apparent Distress
HEENT: Moist Mucous Membranes
Respiratory: Clear to Auscultation
Cardiac: Regular Rhythm and S1/S2
Musculoskeletal: Other (rt ventral foot in abd pad dressing .)
Neuro: AO x 3
Psych: Calm
Data Reviewed
-
Diagnostic Radiology: Image personally visualized and interpreted and Report Reviewed by me
Medical Tests (Nuc Med, Echo etc): Image personally visualized and interpreted and Report Reviewed by me
Labs: Labs Reviewed by me
--- NOTE | 2023-07-26 16:58 | W.SUR.POST ---
Surgical Immediate Post Op
Note
Pre Op Diagnosis: Chronic wound right foot
Post Op Diagnosis: same-
Procedure Performed: Excision of ulceration with rearrangement of tissue and primary repair-moderate complexity
Primary Surgeon: Jonnie Wei
Secondary Surgeons: NA
Anesthesia: IV sed w/local donnie 20cc 0.5%johnnie plain
Estimated Blood Loss: 10mL
Fluids: NA
Drains/Shunts: NA
Specimens/Cultures: NA
Doppler/Duplex/Angio (Y/N): N
Complications: None
Operative Findings: No abscess or necrosis, wound successfully primarily repaired
[2023-07-26] MEDS: NEURONTIN PO (17:51)
--- NOTE | 2023-07-26 18:09 | PTCARENOTE ---
Received pt post R foot wound closure with CYLINDER PRESS FEEDER at bedside, VSS, 2LO2 placed, dressing CDI.
[2023-07-26] MEDS: HEPARIN 5000 UNITS SC (20:56)
[2023-07-27 03:54] VITALS: BP 137/73
[2023-07-27] MEDS: ULTRAM 50 MG PO (04:03)
[2023-07-27] MEDS: VANCOCIN 275 MG IV (06:00)
[2023-07-27 07:40] VITALS: BP 132/72
[2023-07-27] MEDS: SYMBICORT 80/4.5 MCG INHALER 2 PUFF INH (07:52)
[2023-07-27] MEDS: TYLENOL 650 MG PO (08:13)
[2023-07-27] MEDS: VITAMIN B1 100 MG PO (08:14)
[2023-07-27] MEDS: ASPIR LOW (ENTERIC COATED) 81 MG PO (08:14)
[2023-07-27] MEDS: NEURONTIN 300 MG PO ×2 (08:14→15:33)
[2023-07-27] MEDS: PROTONIX 40 MG PO (08:14)
[2023-07-27] MEDS: CYMBALTA DELAYED RELEASE 30 MG PO (08:14)
[2023-07-27] MEDS: HEPARIN 5000 UNITS SC (08:14)
[2023-07-27] MEDS: VESICARE 10 MG PO (08:14)
[2023-07-27] MEDS: NORVASC 5 MG PO (08:15)
[2023-07-27] MEDS: LOPRESSOR 25 MG PO (08:15)
[2023-07-27] MEDS: DAKIN'S SOLUTION 0.25% 1/2 STRENGTH 473 ML TOPICAL (08:15)
[2023-07-27 08:17] LABS: Hematocrit 34.2 % (37.0-47.0); Hemoglobin 11.4 g/dL (12.0-16.0); Mean Corp Hgb Conc. 33.3 g/dL (33.0-37.0); Mean Corpuscular Hgb 30.7 pg (27.0-31.0); Mean Corpuscular Volume 92.2 fL (81.0-99.0); Mean Platelet Volume 9.9 fL (7.4-10.4); Platelet Count 248 10^3/uL (130-400); Red Blood Cell Count 3.71 10^6/uL (4.20-5.40); Red Cell Dist. Width 12.9 % (11.5-14.5); White Blood Cell Count 5.3 10^3/uL (4.8-10.8)
[2023-07-27 08:59] LABS: ALT (SGPT) 26 U/L (0-35); AST (SGOT) 31 U/L (14-36); Alkaline Phosphatase 63 U/L (38-126); Blood Urea Nitrogen 16 mg/dl (7-17); Calcium 10.1 mg/dl (8.4-10.2); Carbon Dioxide 26 mmol/L (22-30); Chloride 103 mmol/L (98-107); Estimated Creatinine Clearance 86 ml/min; Glucose 85 mg/dl (70-99); Magnesium 1.6 mg/dl (1.6-2.3); Potassium 3.7 mmol/L (3.5-5.1); Sodium 136 mmol/L (135-145); Total Bilirubin 0.5 mg/dl (0.2-1.3); Total Protein 6.5 g/dl (6.3-8.2); eGFR > 60.00
--- NOTE | 2023-07-27 10:26 | PN.CDI ---
CDI
- -
CDI:
Physician Documentation Request
Admit Date: 07/19/23 22:54
Dear Doctor Ximena,
Patient admitted with infected right plantar wound.
Op report, 'Chronic nonhealing wound.'
07/25 PN, 'History of peripheral arterial disease....L AKA....Continue aspirin.'
Please clarify the likely relationship between these conditions:
Yes, chronic nonhealing wound is related to/associated with peripheral arterial disease.
No, chronic nonhealing wound is not related to/associated with peripheral artery disease but it is due to ___. (Please specify)
Unable to determine
Use of terms such as suspected, likely, concern for, or probable (associated with a specific diagnosis that is being evaluated, monitored, or treated as if it exists) are acceptable and can be coded in the inpatient setting, when documented at the
time of discharge.
Thank you,
Maria Esther NATHAN,RN,CCDS
CDI Specialist
Available via [place] text
Please use your independent medical judgment in providing your response.
--- NOTE | 2023-07-27 11:07 | W.PN.ID1 ---
Date of Service
Date of Service: July 27, 2023
Today's Communication
- c/w vancomycin, ertapenem - plan 6 weeks of IV antibiotics for possible osteomyelitis of the 4th metatarsal
- picc line
- follow up with podiatry
Assessment / Plan
R Plantar Foot Wound Infection
Suspected Chronic Osteomyelitis of the 4th Metatarsal
AVN of metatarsals
PAD
Reported anaphylaxis to doxycycline
Recommendations:
- wound culture: Proteus, Enterococcus, diptheroids
- MRI with likely abscess, probable osteomyelitis of the 4th metatarsal
- S/P OR 07/23/23 for I&D; closure 07/25
- c/w vancomycin, ertapenem - plan 6 weeks of IV antibiotics for possible osteomyelitis of the 4th metatarsal
- picc line
- follow up with podiatry
����������������������������������������������������������.
Chief Complaint
-: Other (abscess, suspected osteomyelitis right foot)
Subjective / Review of Systems
s/p primary repair
afebrile
bp stable
weight bearing per podiatry
Vital Signs / Physical Exam
Vital Signs
Vital Signs
Temp Pulse Resp BP Pulse Ox
98 F 71 14 132/72 92
07/27/23 07:40 07/27/23 08:15 07/27/23 07:56 07/27/23 08:15 07/27/23 07:56
Physical Exam
Constitutional: No Acute Distress
Cardiovascular: Regular Rate and S1/S2; Negative Murmur or Rub
Pulmonary: Clear and Symmetric; Negative Wheezes or Rales
Gastrointestinal: Soft, Non Tender, Non Distended and Normal Bowel Sounds
Skin: Warm and Dry; Negative Rash or Jaundice
Lines: PICC
Objective Data
Lab Data
Lab Results
07/27/23 07:58
07/27/23 07:58
ESR 2 mm/hour (0-20) 07/22/23 04:26
PT 14.9 Sec (11.4-14.6) H 07/19/23 17:17
INR 1.19 07/19/23 17:17
APTT 36.5 Sec (23.4-35.0) H 07/19/23 17:17
Estimated Creat Clear 86 ml/min 07/27/23 07:58
Lactic Acid Cancelled 07/20/23 00:30
Total Bilirubin 0.5 mg/dl (0.2-1.3) 07/27/23 07:58
AST 31 U/L (14-36) 07/27/23 07:58
ALT 26 U/L (0-35) 07/27/23 07:58
Alkaline Phosphatase 63 U/L (38-126) 07/27/23 07:58
C-Reactive Protein < 5.00 mg/L (0.0-10.00) 07/22/23 04:26
Most recent labs reviewed.
Micro Results:
07/19/23 20:44 Blood Culture - Final
Blood/Venous No Growth - Final Report
07/19/23 20:41 Blood Culture - Final
Blood/Venous No Growth - Final Report
07/20/23 01:06 Wound Culture - Final
Foot - Right Proteus mirabilis
Enterococcus faecalis
Gram Stain - Final
07/20/23 17:05 MRSA Screen - Final
Nose No Methicillin Resistant Staphylococcus aureus isolated.
Wound/abscess/other Cult Final 07/23/23-922
- Right foot -
Few Proteus mirabilis
Few Enterococcus faecalis
Moderate Diptheroids
1. Proteus mirabilis
M.I.C. RX
--------- ---
Amoxicillin/Potas. Clavulanate <=8/4 S
Ampicillin <=8 S
Ampicillin/Sulbactam <=8/4 S
Cefazolin <=2 S
Ertapenem <=0.5 S
Ciprofloxacin <=0.25 S
Gentamicin <=4 S
Levofloxacin <=0.5 S
Meropenem <=1 S
Piperacillin/Tazobactam <=16 S
Tobramycin <=4 S
Trimethoprim/Sulfamethoxazole <=2/38 S
2. Enterococcus faecalis
M.I.C. RX
--------- ---
Ampicillin <=2 S
Gentamicin Synergy Screen <=500 S
Vancomycin 2 S
Care Review
Plan reviewed with: Physician (Dr Wei - tracy)
--- NOTE | 2023-07-27 11:12 | W.PN.POD ---
Today's Communication
Today's Communication
Heating pad to dorsal right foot
IV Abt upon DC to SNF per ID via picc, rec xray in 4 weeks
Surgical dressing to be changed on 07/29/23- Aquacel Ag surgical cover dressing with hydrocolloid border to right foot q 3 days and prn if soiled or removed upon Dc to SNF
Incision to be kept dry and intact
WB up to 20 feet with prosthetic leg LLE and DH walker shoe right foot as tolerated???Not yet delivered by [facility]
Follow up in 10-14 days in my office for re eval
Assessment / Plan
-
PAD-stable S/P revasc
S/P AKA LLE
Gait dysfunction
Abscess right foot-confirmed on MRI, AVN of metatarsal incidental finding
->POD #3 S/p I&D and debridement right foot abscess
--> POD # 1 S/P complex repair plantar foot ulcer and post op I&D
Subjective
Chief Complaint
abscess/chronic wound right foot
Subjective
POD # 1 Patient with some pain today right foot. Denies fever/chills/nausea/vomiting
Objective
Temp Pulse Resp BP Pulse Ox
98 F 71 14 132/72 92
07/27/23 07:40 07/27/23 08:15 07/27/23 07:56 07/27/23 08:15 07/27/23 07:56
07/27/23 07:58
07/27/23 07:58
Vital Signs and Lab results were reviewed.
Physical Exam
Physical Exam
General: No Apparent Distress and Pain (post op pain right foot)
Skin: Warm, Dry and Other (surgical dressing left inplace)
Neuro: AO x 3
Vascular: Capillary Refill Intact
Dorsalis Pedis: Intact
Posterior Tibialis: Diminished
--- NOTE | 2023-07-27 12:06 | PHA.VAN.FU ---
Vancomycin Assessment / Plan
- Assessment
Renal Function: Stable
WBC's are: WNL
Concomitant Antimicrobials: ertapenem
- Dosing Plan
Continue: Vanc 1250mg Q24H
- Monitoring Plan
No level(s) ordered at this time: consider levels in next few days
- Follow Up
Pharmacy will continue to follow.
Vancomycin Follow UP
- -
Patient Age: 72
Patient Sex: Female
Vancomycin Day #: 8
Indication: Skin And Soft Tissue
Requesting Provider: Dr. Pina, Dr. Quiroz
Pertinent Antimicrobial Allergies:
doxycycline - anaphylaxis
Height / Weight:
Height 5 ft 9 in
Actual Weight 85.417 kg
Pertinent Past Medical History: COPD (O2), L. AKA, PAD
- Vital Signs / Lab Results
Temp Pulse Resp BP Pulse Ox
98 F 71 14 132/72 92
07/27/23 07:40 07/27/23 08:15 07/27/23 07:56 07/27/23 08:15 07/27/23 07:56
Lab Results - Hematology
07/27/23
07:58
WBC 5.3
Lab Results - Chemistry
07/27/23
07:58
BUN 16
Creatinine 0.5 L
Estimated Creat Clear 86
Albumin 4.0
Therapeutic Drug Monitoring
Vancomycin Peak 27.4 ug/ml (18-26) H 07/25/23 08:28
Vancomycin Trough 11.7 ug/ml (5-20) 07/23/23 05:30
--- NOTE | 2023-07-27 12:55 | CM ---
Reviewed the chart notes and spoke with the patient at the bedside. [facility]
Call report to: [phone] ask for 'A' wing
Fax report to: [phone]
Medical necessity and transport forms on chart.
[2023-07-27] MEDS: INVANZ 60 MG IV (13:02)
--- NOTE | 2023-07-27 14:02 | W.PN.HOSP.TC ---
Addendum entered and electronically signed by Carlos Eduardo Bueno MD 07/29/23 16:37:
Yes, chronic nonhealing wound is related to/associated with peripheral arterial disease.
Addendum entered and electronically signed by Carlos Eduardo Bueno MD 07/27/23 16:37:
[id number]
Original Note:
Today's Communication/Plan
-
podiatry recs - f/ outpatient
iv abx 6 weeks - picc line placed
wound recs as recommended
Assessment / Plan
Assessment / Plan
# Infected right plantar wound with abscess
# Recent right femorofemoral bypass
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
-Venous ultrasound no DVT
-Foot x-ray without evidence of osteomyelitis. MRI foot showing abscess and collection in foot -s/p I*D by podatrist 07/22.Relook on Wednesday and possible closure of wound today
- wound culture noted
-- - c/w vancomycin, ertapenem - plan 6 weeks of IV antibiotics for possible osteomyelitis of the 4th metatarsal
- picc line
-f/u podiatry outpt 1-2 weeks
-Vascular surgery signed off - f/u outpt
-resume xarelto
-Heating pad to dorsal right foot
- rec xray foot in 4 weeks
-Surgical dressing to be changed on 07/29/23- Aquacel surgical cover dressing with hydrocolloid border to right foot q 3 days and prn if soiled or removed upon Dc to SNF
-Incision to be kept dry and intact
-WB up to 20 feet with prosthetic leg LLE and DH walker shoe right foot as tolerated???Not yet delivered by [facility]
History of peripheral arterial disease status post femorofemoral bypass in January 2023
Left AKA
-Continue aspirin
-f/u outpatietn vascular
Chronic hypoxemic respiratory failure secondary to COPD on 3 L at night at baseline
-Continue inhalers
History of choledocholithiasis/ascending cholangitis
Prior DVT of right lower extremity in January 2023
-Resume Xarelto
Depression
-Continue duloxetine
TIA
Hyperlipidemia
Essential hypertension
-Continue amlodipine
GERD
Adrenal adenoma
Insomnia
Chronic anemia
Chronic pain
-Continue tramadol, gabapentin
Prednisone
-Only takes as needed for sore throat or cold
DNR/DNI
DVT prophylaxis�heparin
Regular diet
More than 30 minutes spent in discharge including
Final examination of the patient
Summarizing hospital stay
Instructions for continuing care to all relevant caregivers
Preparation of discharge records, prescriptions, and referral forms
Total time spent (35 in minutes):
Anticipated Discharge: Today
Subjective/Interval History
-
Date of Service: July 27, 2023
no acute events
Objective Data
-
Labs:
Laboratory Results
07/27/23
07:58
WBC 5.3
Hgb 11.4 L
Hct 34.2 L
Plt Count 248
Sodium 136
Potassium 3.7
Chloride 103
Carbon Dioxide 26
BUN 16
Creatinine 0.5 L
Glucose 85
Calcium 10.1
Total Bilirubin 0.5
AST 31
ALT 26
Alkaline Phosphatase 63
Vital Signs:
Vital Signs
Temp Pulse Resp BP Pulse Ox
98 F 71 14 132/72 92
07/27/23 07:40 07/27/23 08:15 07/27/23 07:56 07/27/23 08:15 07/27/23 07:56
I&O
07/26/23 07/27/23 07/28/23
06:59 06:59 06:59
Intake Total 1160 / 1160 825 / 825
Output Total 400 / 400 550 / 550
Balance 760 / 760 275 / 275
Review of Systems
-
Constitutional: Denies Fever
EENT: Denies Sore Throat
Respiratory: Denies Cough or Trouble Breathing
Cardiac: Denies Chest Pain
Abdomen/GI: Denies Abdominal Pain, Nausea or Vomiting
Neuro: Denies Dizzy
Physical Exam
-
General: No Apparent Distress
HEENT: Moist Mucous Membranes
Respiratory: Clear to Auscultation
Cardiac: Regular Rhythm and S1/S2
Musculoskeletal: Other (rt ventral foot in dressing)
Neuro: AO x 3
Psych: Calm
Data Reviewed
-
Diagnostic Radiology: Image personally visualized and interpreted and Report Reviewed by me
MRI: Image personally visualized and interpreted and Report Reviewed by me
Labs: Labs Reviewed by me
--- NOTE | 2023-07-27 14:10 | W.DS.TRANS ---
DC Summary - Exhauster
-
Discharge Instructions:
Discharge Diagnosis/Procedures R Plantar Foot Wound Infection
Suspected Chronic Osteomyelitis of the 4th
Metatarsal
AVN of metatarsals
PAD
Diet Low Cholesterol
Activity As tolerated
Blood Work vanc troughs as directed, cmp weekly
Instructions:
Stand-Alone Forms:
Changes to Home Medications: Yes
Discharge Medications:
DC Medications w/original date entered in [facility]
amlodipine 5 mg tablet 5 mg PO DAILY Blood Pressure 01/08/23
aspirin 81 mg tablet,delayed release 81 mg PO DAILY Blood Clot Prevention/Tx 01/08/23
duloxetine 30 mg capsule,delayed release sprinkle 30 mg PO BID Depression 01/08/23
pantoprazole 40 mg tablet,delayed release 40 mg PO DAILY #0 tabs 01/22/23
thiamine HCl (vitamin B1) 100 mg tablet 100 mg PO DAILY #0 tabs 01/22/23
acetaminophen 325 mg tablet 650 mg PO Q4HPRN PRN mild pain,temp>100.4 F 01/29/23
bisacodyl 10 mg rectal suppository (Dulcolax (bisacodyl)) 10 mg MD DAILY PRN if mom ineffective 01/29/23
magnesium hydroxide 400 mg/5 mL oral suspension (Milk of Magnesia) 30 ml PO HSPRN PRN if no bm x 3 days 01/29/23
sodium phosphates 19 gram-7 gram/118 mL enema (Fleet Enema) 118 ml MD DAILY PRN if bisacodyl suppository ineffective 01/29/23
gabapentin 300 mg capsule 300 mg PO TID Neurological Condition 03/10/23
fluticasone fur. 100 mcg-umeclid 62.5 mcg-vilant 25 mcg inhalat.powder 1 inh inhalation R DAILY Lung/Breathing Issues 04/01/23
albuterol sulfate 90 mcg/actuation aerosol inhaler (Proventil HFA) 2 puff inhalation R Q4HPRN PRN SOB 04/07/23
Calazime Skin Protectant Exter 1 applic topical TID Skin Issues 04/22/23
menthol 5 mg lozenges (Cough Drops) 5 mg PO Q4HPRN PRN cough/sore throat 07/19/23
metaxalone 800 mg tablet 800 mg PO Q8HPRN PRN muscle spasm/neck pain 07/19/23
metoprolol tartrate 25 mg tablet 25 mg PO DAILY Blood Pressure 07/19/23
solifenacin 10 mg tablet 10 mg PO DAILY Urinary Issue 07/19/23
tramadol 50 mg tablet 50 mg PO Q8HPRN PRN moderate to severe pain 07/19/23
rivaroxaban 2.5 mg tablet (Xarelto) 2.5 mg PO BID Blood Clot Prevention/Tx 07/20/23
Ertapenem [Invanz] 1,000 mg 120 mls/hr IV Q24H 07/27/23
Vancomycin [Vancocin] 1,250 mg 183.33 mls/hr IV DAILY@0600 07/27/23
meperidine (PF) 25 mg/mL injection syringe 12.5 mg (0.5 mL) IV [id number]-Q5MPRN PRN shivers #0 mL 07/27/23
sodium hypochlorite 0.25 % solution (Dakin's Solution) 1 applic topical DAILY #473 mL 07/27/23
Home Medication Changes
Ertapenem [Invanz] 1,000 mg 120 mls/hr IV Q24H 07/27/23
Vancomycin [Vancocin] 1,250 mg 183.33 mls/hr IV DAILY@0600 07/27/23
meperidine (PF) 25 mg/mL injection syringe 12.5 mg (0.5 mL) IV PACU-[id number] PRN shivers #0 mL 07/27/23
sodium hypochlorite 0.25 % solution (Dakin's Solution) 1 applic topical DAILY #473 mL 07/27/23
Pending Results: No
--- NOTE | 2023-07-27 16:54 | PTCARENOTE ---
pt to be transferred back to [facility] this evening at 1730. this nurse called [phone] and spoke to danielle about the patient returning to the facility. pt sent with prosthesis, belongings and RUE PICC in place for use of IV abx at the
facility.
== END 2023-07-27 18:35 | DRG 264 ==
LOC: 2 NORTH 22:54
PROVIDERS: Emergency Medicine; Internal Medicine; ADMITTING PHYSICIAN Hospitalist; ATTENDING PHYSICIAN Internal Medicine; CONSULT PHYSICIAN Podiatrist Foot & Ankle Surgery; CONSULT PHYSICIAN Student in an Organized Health Care Education/Training Program; EMERGENCY PHYSICIAN Emergency Medicine; FAMILY PHYSICIAN Internal Medicine; OTHER PHYSICIAN Surgery Vascular Surgery
PROC: 0JBQ0ZZ Excision of Right Foot Subcutaneous Tissue and Fascia, Open Approach (ICD-10-PCS; 2023-07-23)
PROC: 0JQQ0ZZ Repair Right Foot Subcutaneous Tissue and Fascia, Open Approach (ICD-10-PCS; 2023-07-26)
PROC: 02HV33Z Insertion of Infusion Device into Superior Vena Cava, Percutaneous Approach (ICD-10-PCS; 2023-07-26)
DX: I70.261 Atherosclerosis of native arteries of extremities with gangrene, right leg (principal); M86.671 Other chronic osteomyelitis, right ankle and foot; J96.11 Chronic respiratory failure with hypoxia; L03.115 Cellulitis of right lower limb; L02.611 Cutaneous abscess of right foot; M87.9 Osteonecrosis, unspecified; J44.9 Chronic obstructive pulmonary disease, unspecified; L97.513 Non-pressure chronic ulcer of other part of right foot with necrosis of muscle; M71.21 Synovial cyst of popliteal space [Baker], right knee; I10 Essential (primary) hypertension; F32.A Depression, unspecified; E78.5 Hyperlipidemia, unspecified; K21.9 Gastro-esophageal reflux disease without esophagitis; D35.00 Benign neoplasm of unspecified adrenal gland; D64.9 Anemia, unspecified; G89.29 Other chronic pain; B96.4 Proteus (mirabilis) (morganii) as the cause of diseases classified elsewhere; B95.2 Enterococcus as the cause of diseases classified elsewhere; G47.00 Insomnia, unspecified; Z66 Do not resuscitate; Z87.891 Personal history of nicotine dependence; Z89.612 Acquired absence of left leg above knee; Z79.82 Long term (current) use of aspirin; Z79.51 Long term (current) use of inhaled steroids; Z79.52 Long term (current) use of systemic steroids; Z99.81 Dependence on supplemental oxygen; Z86.718 Personal history of other venous thrombosis and embolism; Z86.73 Personal history of transient ischemic attack (TIA), and cerebral infarction without residual deficits; Z88.1 Allergy status to other antibiotic agents; Z88.5 Allergy status to narcotic agent; Z88.8 Allergy status to other drugs, medicaments and biological substances
CPT/HCPCS: 71045; 73620; 73720; 80048; 80053; 80202; 83036; 83605; 83735; 85025; 85027; 85610; 85652; 85730; 86140; 86803; 87040; 87070; 87071; 87077; 87186; 87205; 93922; 93925; 93971; 94640; 96365; 96367; 96375; 99285; A9575; J1335

== ENCOUNTER → 2024-01-06 08:03 | Outpatient (REF) | payer MEDICARE, OTHER, SELFPAY | LOC: RAD 08:03 | PROVIDERS: ATTENDING PHYSICIAN Specialist; FAMILY PHYSICIAN Family Medicine | DX: D41.01 Neoplasm of uncertain behavior of right kidney (principal); N39.41 Urge incontinence | CPT/HCPCS: 76775 ==

== ENCOUNTER 2024-03-31 06:18 | Day surgery (SDC) | payer MEDICARE, OTHER, SELFPAY ==
[2024-03-30 11:00] VITALS: BMI 20.8
[2024-03-31] VITALS (12 sets, daily range): BP systolic 92–119; BP diastolic 51–71; BMI 20.8
[2024-03-31] MEDS: SYRINGE NON-PUMP 50 MG IRRIG ×2 (09:42→09:43)
[2024-03-31] MEDS: SYRINGE NON-PUMP 50 ML IRRIG ×2 (09:42→09:43)
[2024-03-31] MEDS: ZOFRAN 4 MG IV (10:49)
== END 2024-03-31 12:30 | disposition home or self-care (01) ==
LOC: SDS 06:18
PROVIDERS: ATTENDING PHYSICIAN Specialist
DX: N32.89 Other specified disorders of bladder (principal); D49.4 Neoplasm of unspecified behavior of bladder
CPT/HCPCS: 52234; 52005; 88307; 74420; 76000; 87070; 88341; 88342; C1758; J9201

== ENCOUNTER → 2024-05-23 13:30 | Outpatient (REF) | payer MEDICARE, OTHER, SELFPAY | LOC: RAD 13:30 | PROVIDERS: ATTENDING PHYSICIAN Registered Nurse; FAMILY PHYSICIAN Family Medicine | DX: Z98.890 Other specified postprocedural states (principal) | CPT/HCPCS: 93922; 93925 ==

== ENCOUNTER → 2024-07-05 17:05 | Outpatient (REF) | payer MEDICARE, OTHER, SELFPAY | LOC: RAD 17:05 | PROVIDERS: ATTENDING PHYSICIAN Family Medicine | DX: M86.9 Osteomyelitis, unspecified (principal); M87.074 Idiopathic aseptic necrosis of right foot | CPT/HCPCS: 73630 ==

== ENCOUNTER → 2024-08-03 12:55 | Outpatient (REF) | payer MEDICARE, OTHER, SELFPAY | LOC: EMG 12:55 | PROVIDERS: ATTENDING PHYSICIAN Podiatrist Foot & Ankle Surgery; FAMILY PHYSICIAN Family Medicine | DX: R20.0 Anesthesia of skin (principal) | CPT/HCPCS: 95886; 95909 ==

== ENCOUNTER → 2024-09-01 11:14 | Outpatient (REF) | payer MEDICARE, OTHER, SELFPAY | LOC: HWRAD 11:14 | PROVIDERS: ATTENDING PHYSICIAN Orthopaedic Surgery; FAMILY PHYSICIAN Family Medicine; REFERRING PHYSICIAN Podiatrist Foot & Ankle Surgery | DX: M25.511 Pain in right shoulder (principal); Z91.81 History of falling | CPT/HCPCS: 72110; 73200; 73502 ==

== ENCOUNTER → 2024-09-06 13:04 | Outpatient (REF) | payer MEDICARE, OTHER, SELFPAY | LOC: PAVMRI 13:04 | PROVIDERS: ATTENDING PHYSICIAN Specialist; FAMILY PHYSICIAN Family Medicine | DX: D41.01 Neoplasm of uncertain behavior of right kidney (principal) | CPT/HCPCS: 74183; A9575 ==

== ENCOUNTER → 2024-09-15 12:59 | Outpatient (REF) | payer MEDICARE, OTHER, SELFPAY | LOC: RAD 12:59 | PROVIDERS: ATTENDING PHYSICIAN Surgery Vascular Surgery; FAMILY PHYSICIAN Family Medicine | DX: M79.89 Other specified soft tissue disorders (principal) | CPT/HCPCS: 93971 ==

== ENCOUNTER → 2024-10-26 12:57 | Outpatient (REF) | payer MEDICARE, OTHER, SELFPAY | LOC: WDC 12:57 | PROVIDERS: ATTENDING PHYSICIAN Family Medicine | DX: Z12.31 Encounter for screening mammogram for malignant neoplasm of breast (principal) | CPT/HCPCS: 77063; 77067 ==

== ENCOUNTER → 2024-11-27 13:57 | Outpatient (REF) | payer MEDICARE, OTHER, SELFPAY | LOC: DHVS 13:57 | PROVIDERS: ATTENDING PHYSICIAN Physician Assistant; FAMILY PHYSICIAN Family Medicine; OTHER PHYSICIAN Surgery Vascular Surgery | DX: I73.9 Peripheral vascular disease, unspecified (principal) | CPT/HCPCS: 93922; 93925 ==